=== PATIENT | female | born 1950 | race Two or more races ===

== ENCOUNTER → 2016-10-17 | Outpatient (CLI) | payer MEDICARE, OTHER | END | disposition home or self-care (01) | LOC: Rad HDHVI 13:25 | PROVIDERS: ATTEND Internal Medicine Cardiovascular Disease | DX: R01.1 Cardiac murmur, unspecified (principal) | CPT/HCPCS: 93880 ==

== ENCOUNTER → 2016-10-20 | Outpatient (CLI) | payer MEDICARE, OTHER ==
[2016-10-20 12:48] LABS: Basophils # (auto) 0 uL; Basophils % (auto) 0.7 % (0.0-2.0); CONDITION Y; Eosinophils # (auto) 0.3 uL; Eosinophils % (auto) 5.3 % (0.0-7.0); Hematocrit 44.6 % (36.0-46.0); Hemoglobin 14.9 g/dL (12.2-16.2); Lymphocytes # (auto) 0.9 uL; Lymphocytes % (auto) 18.2 % (10.0-50.0); Mean Corpuscular Hemoglobin 31.6 pg (28.0-32.0); Mean Corpuscular Hgb Conc. 33.4 g/dL (32.0-36.0); Mean Corpuscular Volume 94.7 fL (80.0-100.0); Monocytes # (auto) 0.4 uL; Neutrophils # (auto) 3.3 uL; Neutrophils % (auto) 67.8 % (37.0-80.0); Platelet Count (auto) 256 10^3/uL (140-450); Red Cell Distribution Width 14.1 % (11.6-16.0); White Blood Cell 4.9 10^3/uL (4.4-10.8)
[2016-10-20 12:54] LABS: Albumin 3.7 g/dL (3.4-5.0); Alkaline Phosphatase 64 U/L (45-117); Anion Gap 7 (5-15); Aspartate Aminotransferase 20 U/L (15-37); BUN/Creatinine Ratio 18.3; Bilirubin, Direct < 0.1 mg/dL (0-0.2); Bilirubin, Total 0.4 mg/dL (0.2-1.0); Blood Urea Nitrogen 22 mg/dL (7-18); Calcium 9.4 mg/dL (8.5-10.1); Carbon Dioxide 27 mmol/L (21-32); Chloride 106 mmol/L (98-107); Cholesterol 244 mg/dL (< 200); GFR African American 58 mL/min; GFR Non-African American 48 mL/min; Glucose 97 mg/dL (74-106); HDL Cholesterol 78 mg/dL (40-59); LDL Cholesterol 144 mg/dL (< 100); Potassium 4.3 mmol/L (3.5-5.1); Sodium 140 mmol/L (136-145); Total Protein 7.4 g/dL (6.4-8.2); Triglycerides 152 mg/dL (< 150)
== END | disposition home or self-care (01) ==
LOC: Rad HDHVI 09:16
PROVIDERS: ATTEND Internal Medicine Cardiovascular Disease
DX: E78.00 Pure hypercholesterolemia, unspecified (principal); D64.9 Anemia, unspecified; I10 Essential (primary) hypertension; E03.9 Hypothyroidism, unspecified; E55.9 Vitamin D deficiency, unspecified; K74.1 Hepatic sclerosis; E11.9 Type 2 diabetes mellitus without complications; K75.9 Inflammatory liver disease, unspecified; M85.9 Disorder of bone density and structure, unspecified
CPT/HCPCS: 36415; 77078; 80048; 80061; 80076; 82306; 83036; 84439; 84443; 85025; 86704; 86706; 86708; 86803; 87340

== ENCOUNTER → 2019-11-19 | Outpatient (CLI) | payer MEDICARE, BC ==
[2019-11-19 16:00] LABS: Urine Blood Negative /uL (Negative); Urine Specific Gravity 1.008 (1.001-1.035)
== END | disposition home or self-care (01) ==
LOC: LAB 13:04
PROVIDERS: ATTEND Internal Medicine Cardiovascular Disease
DX: N39.0 Urinary tract infection, site not specified (principal)
CPT/HCPCS: 81003; 87086

== ENCOUNTER → 2019-12-17 | Outpatient (CLI) | payer MEDICARE, BC | END | disposition home or self-care (01) | LOC: Rad HDHVI 13:18 | PROVIDERS: ATTEND Internal Medicine Cardiovascular Disease | DX: I08.3 Combined rheumatic disorders of mitral, aortic and tricuspid valves (principal); I10 Essential (primary) hypertension; R00.2 Palpitations; J44.9 Chronic obstructive pulmonary disease, unspecified | CPT/HCPCS: 93306 ==

== ENCOUNTER 2020-01-21 17:11 | Inpatient (IN) | payer MEDICARE, OTHER ==
[~2020-01-21] VITALS: Ht 152.4 cm; Wt 65.0 kg
[2020-01-21] MEDS ORDERED: ACETAMINOPHEN 325 MG TAB PO ONE ×2 (17:30)
[2020-01-21] MEDS ORDERED: SODIUM CHLORIDE 0.9% 1,000 ML IVB ONE (18:04)
[2020-01-21] MEDS ORDERED: ONDANSETRON HCL 4 MG/2 ML VIAL IV ONE ×2 (18:15→19:45)
[2020-01-21] MEDS ORDERED: MORPHINE SULF INJ 2 MG/ML SYRINGE 1ML IV ONE ×2 (18:30→19:45)
[2020-01-21 18:59] LABS: Urine Bacteria FEW /hpf (None Seen); Urine Blood Negative /uL (Negative); Urine Mucus FEW (None Seen); Urine Specific Gravity 1.017 (1.001-1.035); Urine WBC 3 /hpf (0 - 5)
[2020-01-21] MEDS ORDERED: metroNIDAZOLE 500MG/100ML 100 ML IV ONE (19:15)
[2020-01-21] MEDS ORDERED: PIPERACILLIN-TAZO 4.5GM 100 ML IV ONE (19:15)
[2020-01-21] MEDS ORDERED: SODIUM CHLORIDE 0.9% 1,000 ML IV ONE (19:15)
[2020-01-21] MEDS ORDERED: cefTRIAXone 1GM/50ML D5W 50 ML IV ONE ×2 (19:15→20:15)
[2020-01-21 19:53] LABS: Basophils # (auto) 0 10 ^3/uL (0-0.2); Eosinophils # (auto) 0 10 ^3/uL (0-0.8); Hematocrit 38.1 % (36.0-46.0); Hemoglobin 12.9 g/dL (12.2-16.2); Lymphocytes # (auto) 0.2 10 ^3/uL (0.4-5.4); Lymphocytes % (auto) 3.1 % (10.0-50.0); Mean Corpuscular Hemoglobin 32.1 pg (28.0-32.0); Mean Corpuscular Hgb Conc. 33.9 g/dL (32.0-36.0); Mean Corpuscular Volume 94.8 fL (80.0-100.0); Monocytes # (auto) 0.5 10 ^3/uL (0-1.3); Monocytes % (auto) 7.9 % (0.0-12.0); Neutrophils # (auto) 5.1 10 ^3/uL (1.6-8.6); Platelet Count (auto) 197 10^3/uL (140-450); Red Blood Cells 4.02 10^6/uL (4.0-5.20); Red Cell Distribution Width 13.1 % (11.8-14.3); White Blood Cell 5.7 10^3/uL (4.4-10.8)
[2020-01-21 20:08] LABS: INR 1.05 (0.9-1.15); Partial Thromboplastin Time 35.6 sec (23.0-31.2)
[2020-01-21 20:10] LABS: Albumin 2.5 g/dL (3.4-5.0); Calcium 8.2 mg/dL (8.5-10.1); Magnesium 1.8 mg/dL (1.6-2.6); Potassium 4.1 mmol/L (3.5-5.1)
[2020-01-21 20:16] LABS: BUN/Creatinine Ratio 18.4; Bilirubin, Total 1.5 mg/dL (0.2-1.0); Total Protein 6.2 g/dL (6.4-8.2)
[2020-01-21] MEDS: D5W/SOD CHLO 0.9% 1,000 ML IV SCH (21:15)
[2020-01-21] MEDS ORDERED: ONDANSETRON HCL 4 MG/2 ML VIAL IV PRN (21:15)
[2020-01-21] MEDS ORDERED: MORPHINE SULFATE 4 MG/ML SYR/VIAL IV PRN (21:15)
[2020-01-21] MEDS ORDERED: NITROGLYCERIN 0.4 MG SL TAB SL PRN (21:15)
[2020-01-21] MEDS ORDERED: MORPHINE SULF INJ 2 MG/ML SYRINGE 1ML IV PRN (21:15)
[2020-01-21] MEDS ORDERED: TPN PER PHARMACY 0 ML IV SCH (22:30)
[2020-01-21] MEDS ORDERED: LORazepam 2MG/ML-1ML VIAL IV PRN (22:30)
[2020-01-21] MEDS ORDERED: ALBUTEROL SULF 2.5 MG/0.5ML(0.5%) NEB SOLN ONE (22:55)
[2020-01-21] MEDS: ALBUTEROL SULF 2.5 MG/0.5ML(0.5%) NEB SOLN NEB PRN (23:08)
[2020-01-21] MEDS ORDERED: OLME40TA26 PO (23:18)
[2020-01-21] MEDS ORDERED: TRIA75TA55 PO (23:18)
[2020-01-21] MEDS ORDERED: ATEN1TAB38 PO ×2 (23:18)
[2020-01-21] MEDS ORDERED: AMLO5TAB15 PO (23:18)
[2020-01-21] MEDS: HYDROmorphone HCL 2 MG/ML VL IV PRN (23:55)
[2020-01-22] VITALS (9 sets, daily range): BP systolic 94–131; BP diastolic 55–75
[2020-01-22] MEDS ORDERED: ALBU108A5 INH (01:13)
[2020-01-22] MEDS ORDERED: POTA-220 PO (01:13)
[2020-01-22] MEDS ORDERED: MONT10TA34 PO (01:13)
[2020-01-22] MEDS ORDERED: POLY33504 PO (01:44)
[2020-01-22 05:50] LABS: Albumin 2.3 g/dL (3.4-5.0); Anion Gap 4 (5-15); Blood Urea Nitrogen 22 mg/dL (7-18); Calcium 7.9 mg/dL (8.5-10.1); Carbon Dioxide 25 mmol/L (21-32); Chloride 112 mmol/L (98-107); Glucose 158 mg/dL (74-106); Potassium 3.6 mmol/L (3.5-5.1); Sodium 141 mmol/L (136-145)
[2020-01-22 05:58] LABS: Alanine Aminotransferase 22 U/L (13-56); Alkaline Phosphatase 77 U/L (45-117); Aspartate Aminotransferase 20 U/L (15-37); BUN/Creatinine Ratio 18.5; Bilirubin, Total 0.9 mg/dL (0.2-1.0); GFR African American 58 mL/min; GFR Non-African American 48 mL/min; Total Protein 6.1 g/dL (6.4-8.2)
[2020-01-22] MEDS: HYDROmorphone HCL 2 MG/ML VL IV PRN ×3 (06:06→21:34)
[2020-01-22] MEDS: metroNIDAZOLE 500MG/100ML 100 ML IV SCH ×3 (06:07→21:24)
[2020-01-22 06:20] LABS: Basophils # (auto) 0 10 ^3/uL (0-0.2); Basophils % (auto) 0.1 % (0.0-2.0); Eosinophils # (auto) 0 10 ^3/uL (0-0.8); Eosinophils % (auto) 0.1 % (0.0-7.0); Hematocrit 37.2 % (36.0-46.0); Hemoglobin 12.7 g/dL (12.2-16.2); Lymphocytes # (auto) 0.4 10 ^3/uL (0.4-5.4); Lymphocytes % (auto) 4.9 % (10.0-50.0); Mean Corpuscular Hemoglobin 32.4 pg (28.0-32.0); Mean Corpuscular Hgb Conc. 34.2 g/dL (32.0-36.0); Mean Corpuscular Volume 94.9 fL (80.0-100.0); Monocytes # (auto) 0.4 10 ^3/uL (0-1.3); Monocytes % (auto) 5.3 % (0.0-12.0); Neutrophils # (auto) 6.8 10 ^3/uL (1.6-8.6); Neutrophils % (auto) 89.6 % (37.0-80.0); Platelet Count (auto) 173 10^3/uL (140-450); Red Blood Cells 3.92 10^6/uL (4.0-5.20); Red Cell Distribution Width 13.1 % (11.8-14.3); White Blood Cell 7.6 10^3/uL (4.4-10.8)
[2020-01-22 08:10] LABS: Phosphorus 3.6 mg/dL (2.5-4.90); Pre Albumin 10.6 mg/dL (20.0-40.0)
[2020-01-22] MEDS: cefTRIAXone 1GM/50ML D5W 50 ML IV SCH (09:22)
[2020-01-22] MEDS: D5W/SOD CHLO 0.9% 1,000 ML IV SCH ×2 (09:23→11:20)
[2020-01-22] MEDS: PANTOPRAZOLE 40 MG/10 ML VIAL INJ IV SCH (09:23)
[2020-01-22] MEDS ORDERED: LIDOCAINE 1% (LOCAL ANESTH.) PF 5ml SDV ID ONE (14:15)
[2020-01-22] MEDS: InsuLIN REG 1unit/0.01ml Soln (100units/ml) SC SCH (17:00)
[2020-01-22] MEDS: ACCU-CHEK COMFORT CURVE STRIP VI SCH (17:01)
[2020-01-22] MEDS ORDERED: DEXTROSE (50%) 50ML SYRG IV SCH (18:00)
[2020-01-22] MEDS ORDERED: PPN PER PHARMACY IV NR ×8 (20:00)
[2020-01-22] MEDS: SODIUM CHLOR 0.9% PF (SALINE LOCK) 10ML VIAL/SYR IV SCH (21:24)
[2020-01-23] MEDS: ACCU-CHEK COMFORT CURVE STRIP VI SCH ×4 (00:02→19:37)
[2020-01-23] MEDS: D5W/SOD CHLO 0.9% 1,000 ML IV SCH ×2 (03:10→20:17)
[2020-01-23 05:00] VITALS: BP 146/77
[2020-01-23 05:56] LABS: Basophils # (auto) 0 10 ^3/uL (0-0.2); Basophils % (auto) 0.3 % (0.0-2.0); Eosinophils # (auto) 0 10 ^3/uL (0-0.8); Eosinophils % (auto) 0.4 % (0.0-7.0); Hematocrit 38.5 % (36.0-46.0); Hemoglobin 13.2 g/dL (12.2-16.2); Lymphocytes # (auto) 0.4 10 ^3/uL (0.4-5.4); Lymphocytes % (auto) 4.2 % (10.0-50.0); Mean Corpuscular Hemoglobin 32.7 pg (28.0-32.0); Mean Corpuscular Hgb Conc. 34.2 g/dL (32.0-36.0); Mean Corpuscular Volume 95.5 fL (80.0-100.0); Monocytes # (auto) 0.5 10 ^3/uL (0-1.3); Monocytes % (auto) 5.7 % (0.0-12.0); Neutrophils # (auto) 8.3 10 ^3/uL (1.6-8.6); Neutrophils % (auto) 89.4 % (37.0-80.0); Nucleated Red Blood Cells % 0.1 %; Platelet Count (auto) 168 10^3/uL (140-450); Red Blood Cells 4.03 10^6/uL (4.0-5.20); Red Cell Distribution Width 13.5 % (11.8-14.3); White Blood Cell 9.3 10^3/uL (4.4-10.8)
[2020-01-23 06:21] LABS: Potassium 3.8 mmol/L (3.5-5.1)
[2020-01-23] MEDS: metroNIDAZOLE 500MG/100ML 100 ML IV SCH ×3 (06:27→22:13)
[2020-01-23] MEDS: InsuLIN REG 1unit/0.01ml Soln (100units/ml) SC SCH ×4 (06:27→18:00)
[2020-01-23 06:30] LABS: Albumin 2.2 g/dL (3.4-5.0); BUN/Creatinine Ratio 21.9; Bilirubin, Total 0.4 mg/dL (0.2-1.0); Calcium 8.6 mg/dL (8.5-10.1); Magnesium 2.3 mg/dL (1.6-2.6); Phosphorus 1.6 mg/dL (2.5-4.90); Total Protein 6.6 g/dL (6.4-8.2)
[2020-01-23] MEDS ORDERED: SODIUM PHOSP 40 MEQ in D5W 5% 250 ML IV ONE (08:45)
[2020-01-23] MEDS: ALBUTEROL SULF 2.5 MG/0.5ML(0.5%) NEB SOLN NEB PRN ×3 (08:56→20:21)
[2020-01-23] MEDS: PANTOPRAZOLE 40 MG/10 ML VIAL INJ IV SCH (08:56)
[2020-01-23] MEDS: cefTRIAXone 1GM/50ML D5W 50 ML IV SCH (08:56)
[2020-01-23] MEDS: HYDROmorphone HCL 2 MG/ML VL IV PRN ×2 (08:57→16:18)
[2020-01-23 09:00] VITALS: BP 146/96
[2020-01-23] MEDS ORDERED: LORazepam 2MG/ML-1ML VIAL IV PRN (10:30)
[2020-01-23] MEDS: SODIUM CHLOR 0.9% PF (SALINE LOCK) 10ML VIAL/SYR IV SCH ×2 (10:32→22:13)
[2020-01-23 13:00] VITALS: BP 121/67
[2020-01-23 17:00] VITALS: BP 144/68
[2020-01-23] MEDS: MORPHINE SULF INJ 2 MG/ML SYRINGE 1ML IV PRN ×2 (18:04→22:13)
[2020-01-23] MEDS ORDERED: PPN PER PHARMACY IV NR ×8 (20:00)
[2020-01-23 22:00] VITALS: BP 139/72
[2020-01-23] MEDS ORDERED: ACETAMINOPHEN 650 MG RECT SUPP PR PRN ×3 (22:00→22:15)
[2020-01-23] MEDS: ACETAMINOPHEN 650 MG RECT SUPP PR PRN (23:08)
[2020-01-24] MEDS: InsuLIN REG 1unit/0.01ml Soln (100units/ml) SC SCH ×5 (00:01→23:31)
[2020-01-24] MEDS: ACCU-CHEK COMFORT CURVE STRIP VI SCH ×5 (00:01→23:22)
[2020-01-24 05:00] VITALS: BP 140/78
[2020-01-24 05:24] LABS: Basophils # (auto) 0 10 ^3/uL (0-0.2); Basophils % (auto) 0.1 % (0.0-2.0); Eosinophils # (auto) 0.1 10 ^3/uL (0-0.8); Eosinophils % (auto) 1.3 % (0.0-7.0); Hematocrit 35.9 % (36.0-46.0); Hemoglobin 12.3 g/dL (12.2-16.2); Lymphocytes # (auto) 0.6 10 ^3/uL (0.4-5.4); Lymphocytes % (auto) 6.9 % (10.0-50.0); Mean Corpuscular Hemoglobin 32.9 pg (28.0-32.0); Mean Corpuscular Hgb Conc. 34.3 g/dL (32.0-36.0); Monocytes # (auto) 0.6 10 ^3/uL (0-1.3); Monocytes % (auto) 7.2 % (0.0-12.0); Neutrophils # (auto) 7.4 10 ^3/uL (1.6-8.6); Neutrophils % (auto) 84.5 % (37.0-80.0); Platelet Count (auto) 148 10^3/uL (140-450); Red Blood Cells 3.75 10^6/uL (4.0-5.20); Red Cell Distribution Width 14.1 % (11.8-14.3); White Blood Cell 8.7 10^3/uL (4.4-10.8)
[2020-01-24 05:41] LABS: Albumin 1.7 g/dL (3.4-5.0); Calcium 7.7 mg/dL (8.5-10.1); Potassium 3.5 mmol/L (3.5-5.1)
[2020-01-24 05:46] LABS: Bilirubin, Total 0.3 mg/dL (0.2-1.0); Phosphorus 2.6 mg/dL (2.5-4.90); Total Protein 5.5 g/dL (6.4-8.2)
[2020-01-24] MEDS: metroNIDAZOLE 500MG/100ML 100 ML IV SCH (06:14)
[2020-01-24 09:00] VITALS: BP 146/81
[2020-01-24] MEDS: ALBUTEROL SULF 2.5 MG/0.5ML(0.5%) NEB SOLN NEB PRN ×2 (09:00→17:40)
[2020-01-24] MEDS: cefTRIAXone 1GM/50ML D5W 50 ML IV SCH (09:29)
[2020-01-24] MEDS: SODIUM CHLOR 0.9% PF (SALINE LOCK) 10ML VIAL/SYR IV SCH ×2 (09:29→20:54)
[2020-01-24] MEDS: PANTOPRAZOLE 40 MG/10 ML VIAL INJ IV SCH (09:29)
[2020-01-24] MEDS ORDERED: PIPERACILLIN-TAZOB 3.375GM 100 ML IV ONE (10:00)
[2020-01-24] MEDS: D5W/SOD CHLO 0.9% 1,000 ML IV SCH (12:37)
[2020-01-24 13:00] VITALS: BP 147/84
[2020-01-24 17:00] VITALS: BP 147/87
[2020-01-24 17:40] VITALS: BP 127/72
[2020-01-24] MEDS: PIPERACILLIN-TAZOB 3.375GM 100 ML IV SCH (18:02)
[2020-01-24] MEDS: MORPHINE SULF INJ 2 MG/ML SYRINGE 1ML IV PRN (18:03)
[2020-01-24] MEDS ORDERED: TPN PER PHARMACY IV NR ×10 (20:00)
[2020-01-24] MEDS: ACETAMINOPHEN 650 MG RECT SUPP PR PRN ×2 (20:54→21:32)
[2020-01-24 21:44] VITALS: BP 127/72
[2020-01-25] MEDS: PIPERACILLIN-TAZOB 3.375GM 100 ML IV SCH ×3 (01:32→18:28)
[2020-01-25 05:03] LABS: Basophils # (auto) 0 10 ^3/uL (0-0.2); Basophils % (auto) 0.3 % (0.0-2.0); Eosinophils # (auto) 0.2 10 ^3/uL (0-0.8); Eosinophils % (auto) 2.3 % (0.0-7.0); Hematocrit 36.9 % (36.0-46.0); Hemoglobin 12.7 g/dL (12.2-16.2); Lymphocytes # (auto) 0.8 10 ^3/uL (0.4-5.4); Lymphocytes % (auto) 9.2 % (10.0-50.0); Mean Corpuscular Hemoglobin 32.2 pg (28.0-32.0); Mean Corpuscular Hgb Conc. 34.5 g/dL (32.0-36.0); Mean Corpuscular Volume 93.5 fL (80.0-100.0); Monocytes # (auto) 0.8 10 ^3/uL (0-1.3); Monocytes % (auto) 9.9 % (0.0-12.0); Neutrophils # (auto) 6.6 10 ^3/uL (1.6-8.6); Neutrophils % (auto) 78.3 % (37.0-80.0); Platelet Count (auto) 165 10^3/uL (140-450); Red Blood Cells 3.94 10^6/uL (4.0-5.20); Red Cell Distribution Width 13.8 % (11.8-14.3); White Blood Cell 8.5 10^3/uL (4.4-10.8)
[2020-01-25 05:26] LABS: Albumin 1.7 g/dL (3.4-5.0); Calcium 7.7 mg/dL (8.5-10.1); Potassium 3.4 mmol/L (3.5-5.1)
[2020-01-25 05:30] LABS: Bilirubin, Total 0.4 mg/dL (0.2-1.0); Total Protein 5.3 g/dL (6.4-8.2)
[2020-01-25] MEDS: D5W/SOD CHLO 0.9% 1,000 ML IV SCH (05:31)
[2020-01-25] MEDS: ACCU-CHEK COMFORT CURVE STRIP VI SCH ×4 (05:32→23:39)
[2020-01-25 05:34] VITALS: BP 148/67
[2020-01-25] MEDS: HYDROmorphone HCL 2 MG/ML VL IV PRN (05:37)
[2020-01-25] MEDS: InsuLIN REG 1unit/0.01ml Soln (100units/ml) SC SCH ×4 (05:44→23:32)
[2020-01-25 09:00] VITALS: BP 132/85
[2020-01-25] MEDS ORDERED: POTASSIUM CHL 20MEQ/100ML 100 ML IV ONE (09:45)
[2020-01-25] MEDS: SODIUM CHLOR 0.9% PF (SALINE LOCK) 10ML VIAL/SYR IV SCH ×2 (10:36→21:58)
[2020-01-25] MEDS: PANTOPRAZOLE 40 MG/10 ML VIAL INJ IV SCH (10:36)
[2020-01-25 13:00] VITALS: BP 138/73
[2020-01-25] MEDS: MORPHINE SULF INJ 2 MG/ML SYRINGE 1ML IV PRN ×3 (14:08→23:52)
[2020-01-25 14:42] VITALS: BP 150/80
[2020-01-25] MEDS: ALBUTEROL SULF 2.5 MG/0.5ML(0.5%) NEB SOLN NEB PRN (18:20)
[2020-01-25] MEDS ORDERED: TPN PER PHARMACY IV NR ×9 (20:00)
[2020-01-25] MEDS ORDERED: D5W/SOD CHLO 0.9% 1,000 ML IV SCH (20:00)
[2020-01-25 21:44] VITALS: BP 132/75
[2020-01-25] MEDS: ACETAMINOPHEN 650 MG RECT SUPP PR PRN (21:58)
[2020-01-25 22:33] VITALS: BP 142/74
[2020-01-26] MEDS: PIPERACILLIN-TAZOB 3.375GM 100 ML IV SCH ×3 (01:32→17:24)
[2020-01-26 05:22] LABS: Albumin 1.7 g/dL (3.4-5.0)
[2020-01-26 05:26] LABS: BUN/Creatinine Ratio 32.3; Bilirubin, Total 0.4 mg/dL (0.2-1.0); Phosphorus 3.3 mg/dL (2.5-4.90); Total Protein 5.5 g/dL (6.4-8.2)
[2020-01-26] MEDS: ACCU-CHEK COMFORT CURVE STRIP VI SCH ×3 (05:55→18:17)
[2020-01-26] MEDS: InsuLIN REG 1unit/0.01ml Soln (100units/ml) SC SCH ×3 (05:55→17:57)
[2020-01-26] MEDS ORDERED: OMNIPAQUE ORAL SOLN 500ml 12mg/ml PO ONE (07:08)
[2020-01-26] MEDS: PANTOPRAZOLE 40 MG/10 ML VIAL INJ IV SCH (08:19)
[2020-01-26] MEDS: SODIUM CHLOR 0.9% PF (SALINE LOCK) 10ML VIAL/SYR IV SCH ×2 (08:20→22:13)
[2020-01-26] MEDS: MORPHINE SULF INJ 2 MG/ML SYRINGE 1ML IV PRN ×2 (08:21→17:36)
[2020-01-26 08:36] VITALS: BP 152/81
[2020-01-26] MEDS ORDERED: fentaNYL CITRATE 100 MCG/2 ML VL IV ONE (12:15)
[2020-01-26] MEDS ORDERED: MIDAZOLAM HCL 1MG/1ML-2 ML VIAL IV ONE (12:15)
[2020-01-26] MEDS: ALBUTEROL SULF 2.5 MG/0.5ML(0.5%) NEB SOLN NEB PRN (12:39)
[2020-01-26] MEDS ORDERED: LIDOCAINE 2%HCL (LOCAL ANESTH.) INJ 20ML MDV ONE (12:41)
[2020-01-26] MEDS ORDERED: GASTROGRAFIN 30 ML SOL ONE (12:45)
[2020-01-26 13:00] VITALS: BP 129/73
[2020-01-26] MEDS ORDERED: GASTROGRAFIN 120 ML SOL ONE (13:21)
[2020-01-26 17:00] VITALS: BP 114/56
[2020-01-26] MEDS ORDERED: TPN PER PHARMACY IV NR ×11 (20:00)
[2020-01-26 21:34] VITALS: BP 125/74
[2020-01-26] MEDS: ACETAMINOPHEN 650 MG RECT SUPP PR PRN (22:14)
[2020-01-27] MEDS: InsuLIN REG 1unit/0.01ml Soln (100units/ml) SC SCH ×5 (00:43→23:39)
[2020-01-27] MEDS: ACCU-CHEK COMFORT CURVE STRIP VI SCH ×5 (00:43→23:28)
[2020-01-27] MEDS: PIPERACILLIN-TAZOB 3.375GM 100 ML IV SCH ×3 (02:50→17:31)
[2020-01-27 04:55] LABS: Basophils # (auto) 0 10 ^3/uL (0-0.2); Basophils % (auto) 0.2 % (0.0-2.0); Eosinophils # (auto) 0.2 10 ^3/uL (0-0.8); Eosinophils % (auto) 1.8 % (0.0-7.0); Hematocrit 37.3 % (36.0-46.0); Hemoglobin 12.7 g/dL (12.2-16.2); Lymphocytes # (auto) 0.8 10 ^3/uL (0.4-5.4); Mean Corpuscular Hemoglobin 31.8 pg (28.0-32.0); Mean Corpuscular Hgb Conc. 33.9 g/dL (32.0-36.0); Mean Corpuscular Volume 93.6 fL (80.0-100.0); Monocytes # (auto) 1.1 10 ^3/uL (0-1.3); Monocytes % (auto) 12.4 % (0.0-12.0); Neutrophils # (auto) 6.8 10 ^3/uL (1.6-8.6); Neutrophils % (auto) 76.6 % (37.0-80.0); Platelet Count (auto) 204 10^3/uL (140-450); Red Blood Cells 3.99 10^6/uL (4.0-5.20); Red Cell Distribution Width 13.6 % (11.8-14.3); White Blood Cell 8.9 10^3/uL (4.4-10.8)
[2020-01-27 05:00] VITALS: BP 136/76
[2020-01-27 05:12] LABS: Albumin 1.7 g/dL (3.4-5.0); Calcium 8.1 mg/dL (8.5-10.1); Magnesium 2.1 mg/dL (1.6-2.6); Potassium 4.1 mmol/L (3.5-5.1)
[2020-01-27 05:17] LABS: BUN/Creatinine Ratio 34.4; Bilirubin, Total 0.4 mg/dL (0.2-1.0); Phosphorus 3.7 mg/dL (2.5-4.90); Total Protein 5.6 g/dL (6.4-8.2)
[2020-01-27 09:00] VITALS: BP 144/67
[2020-01-27] MEDS: HYDROmorphone HCL 2 MG/ML VL IV PRN ×3 (09:10→22:07)
[2020-01-27] MEDS: SODIUM CHLOR 0.9% PF (SALINE LOCK) 10ML VIAL/SYR IV SCH ×2 (09:46→21:11)
[2020-01-27] MEDS: PANTOPRAZOLE 40 MG/10 ML VIAL INJ IV SCH (09:46)
[2020-01-27] MEDS ORDERED: ACETAMINOPHEN 650 MG RECT SUPP PR PRN (10:30)
[2020-01-27 12:28] VITALS: BP 119/64
[2020-01-27 16:59] VITALS: BP 134/83
[2020-01-27 18:10] VITALS: BP 134/83
[2020-01-27] MEDS ORDERED: TPN PER PHARMACY IV NR ×10 (20:00)
[2020-01-27] MEDS: ALBUTEROL SULF 2.5 MG/0.5ML(0.5%) NEB SOLN NEB PRN (20:33)
[2020-01-27 21:11] VITALS: BP 122/80
[2020-01-28] MEDS: diphenhdrAMINE HCL 50 MG/1 ML VL IV PRN (00:11)
[2020-01-28] MEDS: PIPERACILLIN-TAZOB 3.375GM 100 ML IV SCH ×3 (01:51→17:45)
[2020-01-28 05:00] VITALS: BP 133/65
[2020-01-28] MEDS: ACCU-CHEK COMFORT CURVE STRIP VI SCH ×4 (05:31→23:44)
[2020-01-28] MEDS: InsuLIN REG 1unit/0.01ml Soln (100units/ml) SC SCH ×4 (05:32→23:49)
[2020-01-28 06:09] LABS: Albumin 1.7 g/dL (3.4-5.0); Calcium 8.1 mg/dL (8.5-10.1); Magnesium 2.1 mg/dL (1.6-2.6)
[2020-01-28 06:15] LABS: BUN/Creatinine Ratio 34.3; Bilirubin, Total 0.6 mg/dL (0.2-1.0); Phosphorus 3.4 mg/dL (2.5-4.90); Total Protein 5.8 g/dL (6.4-8.2)
[2020-01-28 09:00] VITALS: BP 137/81
[2020-01-28] MEDS: PANTOPRAZOLE 40 MG/10 ML VIAL INJ IV SCH (09:48)
[2020-01-28] MEDS: SODIUM CHLOR 0.9% PF (SALINE LOCK) 10ML VIAL/SYR IV SCH ×2 (09:48→22:21)
[2020-01-28] MEDS ORDERED: ACETAMINOPHEN 500 MG TAB PO PRN (10:15)
[2020-01-28] MEDS: HYDROmorphone HCL 2 MG/ML VL IV PRN ×3 (10:32→20:42)
[2020-01-28 13:00] VITALS: BP 130/70
[2020-01-28] MEDS: metroNIDAZOLE 500MG/100ML 100 ML IV SCH ×2 (15:00→22:22)
[2020-01-28 16:36] VITALS: BP 129/69
[2020-01-28] MEDS: ALBUTEROL SULF 2.5 MG/0.5ML(0.5%) NEB SOLN NEB PRN (18:34)
[2020-01-28] MEDS ORDERED: TPN PER PHARMACY IV NR ×10 (20:00)
[2020-01-28 22:00] VITALS: BP 134/54
[2020-01-29] MEDS: PIPERACILLIN-TAZOB 3.375GM 100 ML IV SCH ×3 (01:56→17:48)
[2020-01-29 04:41] VITALS: BP 146/68
[2020-01-29] MEDS: metroNIDAZOLE 500MG/100ML 100 ML IV SCH ×3 (05:46→21:53)
[2020-01-29 05:52] LABS: Pre Albumin 15.9 mg/dL (20.0-40.0)
[2020-01-29 05:53] LABS: Potassium 3.9 mmol/L (3.5-5.1)
[2020-01-29 06:01] LABS: Albumin 1.7 g/dL (3.4-5.0); BUN/Creatinine Ratio 38.1; Bilirubin, Total 0.7 mg/dL (0.2-1.0); Calcium 8.3 mg/dL (8.5-10.1); Magnesium 2.1 mg/dL (1.6-2.6); Phosphorus 3.1 mg/dL (2.5-4.90); Total Protein 5.9 g/dL (6.4-8.2)
[2020-01-29] MEDS: ACCU-CHEK COMFORT CURVE STRIP VI SCH ×4 (06:09→23:41)
[2020-01-29] MEDS: InsuLIN REG 1unit/0.01ml Soln (100units/ml) SC SCH ×4 (06:14→23:42)
[2020-01-29] MEDS: HYDROmorphone HCL 2 MG/ML VL IV PRN ×3 (08:37→21:53)
[2020-01-29 09:00] VITALS: BP 143/81
[2020-01-29] MEDS: SODIUM CHLOR 0.9% PF (SALINE LOCK) 10ML VIAL/SYR IV SCH ×2 (10:12→21:56)
[2020-01-29] MEDS: PANTOPRAZOLE 40 MG/10 ML VIAL INJ IV SCH (10:12)
[2020-01-29 13:00] VITALS: BP 115/78
[2020-01-29 16:53] VITALS: BP 130/77
[2020-01-29] MEDS ORDERED: TPN PER PHARMACY IV NR ×10 (20:00)
[2020-01-29 21:57] VITALS: BP 134/70
[2020-01-29] MEDS: ALBUTEROL SULF 2.5 MG/0.5ML(0.5%) NEB SOLN NEB PRN (23:04)
[2020-01-30] MEDS: PIPERACILLIN-TAZOB 3.375GM 100 ML IV SCH ×2 (02:20→10:41)
[2020-01-30 04:53] VITALS: BP 121/65
[2020-01-30] MEDS: ACCU-CHEK COMFORT CURVE STRIP VI SCH ×4 (05:56→23:57)
[2020-01-30] MEDS: metroNIDAZOLE 500MG/100ML 100 ML IV SCH ×3 (05:56→22:12)
[2020-01-30 06:04] LABS: Albumin 1.7 g/dL (3.4-5.0); Calcium 8.3 mg/dL (8.5-10.1); Magnesium 2.1 mg/dL (1.6-2.6); Potassium 3.9 mmol/L (3.5-5.1)
[2020-01-30 06:07] LABS: BUN/Creatinine Ratio 32.9; Bilirubin, Total 0.6 mg/dL (0.2-1.0); Phosphorus 3.1 mg/dL (2.5-4.90)
[2020-01-30] MEDS: InsuLIN REG 1unit/0.01ml Soln (100units/ml) SC SCH ×4 (06:14→23:58)
[2020-01-30 09:00] VITALS: BP 131/70
[2020-01-30] MEDS: PANTOPRAZOLE 40 MG/10 ML VIAL INJ IV SCH (10:41)
[2020-01-30] MEDS: SODIUM CHLOR 0.9% PF (SALINE LOCK) 10ML VIAL/SYR IV SCH ×2 (10:41→22:13)
[2020-01-30 13:00] VITALS: BP 129/70
[2020-01-30 14:36] LABS: Basophils # (auto) 0 10 ^3/uL (0-0.2); Basophils % (auto) 0.3 % (0.0-2.0); Eosinophils # (auto) 0.2 10 ^3/uL (0-0.8); Eosinophils % (auto) 1.5 % (0.0-7.0); Hemoglobin 11.5 g/dL (12.2-16.2); Lymphocytes # (auto) 0.6 10 ^3/uL (0.4-5.4); Lymphocytes % (auto) 5.7 % (10.0-50.0); Mean Corpuscular Hemoglobin 31.6 pg (28.0-32.0); Mean Corpuscular Hgb Conc. 33.7 g/dL (32.0-36.0); Mean Corpuscular Volume 93.7 fL (80.0-100.0); Monocytes # (auto) 0.8 10 ^3/uL (0-1.3); Monocytes % (auto) 6.7 % (0.0-12.0); Neutrophils # (auto) 9.7 10 ^3/uL (1.6-8.6); Neutrophils % (auto) 85.8 % (37.0-80.0); Platelet Count (auto) 352 10^3/uL (140-450); Red Blood Cells 3.63 10^6/uL (4.0-5.20); Red Cell Distribution Width 13.6 % (11.8-14.3); White Blood Cell 11.3 10^3/uL (4.4-10.8)
[2020-01-30] MEDS: ALBUTEROL SULF 2.5 MG/0.5ML(0.5%) NEB SOLN NEB PRN (16:39)
[2020-01-30] MEDS: diphenhdrAMINE HCL 50 MG/1 ML VL IV PRN ×2 (16:43→23:59)
[2020-01-30 17:05] VITALS: BP 147/78
[2020-01-30] MEDS: MEROPENEM 1GM IVPB 100 ML IV SCH (18:31)
[2020-01-30] MEDS ORDERED: TPN PER PHARMACY IV NR ×10 (20:00)
[2020-01-30 22:00] VITALS: BP 135/76
[2020-01-31] VITALS (7 sets, daily range): BP systolic 120–135; BP diastolic 60–76
[2020-01-31] MEDS: MEROPENEM 1GM IVPB 100 ML IV SCH ×3 (01:51→18:39)
[2020-01-31] MEDS: HYDROmorphone HCL 2 MG/ML VL IV PRN (02:09)
[2020-01-31 05:40] LABS: Basophils # (auto) 0 10 ^3/uL (0-0.2); Basophils % (auto) 0.2 % (0.0-2.0); Eosinophils # (auto) 0.2 10 ^3/uL (0-0.8); Hematocrit 32.2 % (36.0-46.0); Hemoglobin 10.9 g/dL (12.2-16.2); Lymphocytes # (auto) 0.7 10 ^3/uL (0.4-5.4); Lymphocytes % (auto) 7.4 % (10.0-50.0); Mean Corpuscular Hemoglobin 31.8 pg (28.0-32.0); Mean Corpuscular Hgb Conc. 33.8 g/dL (32.0-36.0); Mean Corpuscular Volume 94.1 fL (80.0-100.0); Monocytes # (auto) 0.8 10 ^3/uL (0-1.3); Monocytes % (auto) 8.4 % (0.0-12.0); Neutrophils # (auto) 7.8 10 ^3/uL (1.6-8.6); Nucleated Red Blood Cells % 0.1 %; Platelet Count (auto) 384 10^3/uL (140-450); Red Blood Cells 3.42 10^6/uL (4.0-5.20); Red Cell Distribution Width 13.7 % (11.8-14.3); White Blood Cell 9.5 10^3/uL (4.4-10.8)
[2020-01-31 05:59] LABS: Albumin 1.7 g/dL (3.4-5.0); Calcium 8.2 mg/dL (8.5-10.1); Magnesium 2.2 mg/dL (1.6-2.6)
[2020-01-31 06:04] LABS: BUN/Creatinine Ratio 38.2; Bilirubin, Total 0.4 mg/dL (0.2-1.0); Phosphorus 3.2 mg/dL (2.5-4.90)
[2020-01-31] MEDS: ACCU-CHEK COMFORT CURVE STRIP VI SCH ×4 (06:05→23:56)
[2020-01-31] MEDS: InsuLIN REG 1unit/0.01ml Soln (100units/ml) SC SCH ×4 (06:06→23:57)
[2020-01-31] MEDS: metroNIDAZOLE 500MG/100ML 100 ML IV SCH ×3 (06:06→22:10)
[2020-01-31] MEDS: PANTOPRAZOLE 40 MG/10 ML VIAL INJ IV SCH (08:54)
[2020-01-31] MEDS: SODIUM CHLOR 0.9% PF (SALINE LOCK) 10ML VIAL/SYR IV SCH ×2 (08:54→22:09)
[2020-01-31] MEDS: ALBUTEROL SULF 2.5 MG/0.5ML(0.5%) NEB SOLN NEB PRN (10:33)
[2020-01-31] MEDS ORDERED: TPN PER PHARMACY IV NR ×9 (20:00)
[2020-01-31] MEDS: diphenhdrAMINE HCL 50 MG/1 ML VL IV PRN (23:56)
[2020-02-01] VITALS (7 sets, daily range): BP systolic 136–160; BP diastolic 59–84
[2020-02-01] MEDS: HYDROmorphone HCL 2 MG/ML VL IV PRN (00:49)
[2020-02-01] MEDS: MEROPENEM 1GM IVPB 100 ML IV SCH ×3 (02:37→18:53)
[2020-02-01 05:43] LABS: Basophils # (auto) 0 10 ^3/uL (0-0.2); Basophils % (auto) 0.3 % (0.0-2.0); Eosinophils # (auto) 0.3 10 ^3/uL (0-0.8); Eosinophils % (auto) 3.5 % (0.0-7.0); Hematocrit 32.9 % (36.0-46.0); Hemoglobin 11.1 g/dL (12.2-16.2); Lymphocytes # (auto) 0.8 10 ^3/uL (0.4-5.4); Lymphocytes % (auto) 9.1 % (10.0-50.0); Mean Corpuscular Hemoglobin 31.7 pg (28.0-32.0); Mean Corpuscular Hgb Conc. 33.8 g/dL (32.0-36.0); Mean Corpuscular Volume 93.6 fL (80.0-100.0); Monocytes # (auto) 0.9 10 ^3/uL (0-1.3); Monocytes % (auto) 9.5 % (0.0-12.0); Neutrophils # (auto) 7.2 10 ^3/uL (1.6-8.6); Neutrophils % (auto) 77.6 % (37.0-80.0); Platelet Count (auto) 463 10^3/uL (140-450); Red Blood Cells 3.52 10^6/uL (4.0-5.20); Red Cell Distribution Width 13.7 % (11.8-14.3); White Blood Cell 9.2 10^3/uL (4.4-10.8)
[2020-02-01] MEDS: metroNIDAZOLE 500MG/100ML 100 ML IV SCH ×3 (05:58→22:30)
[2020-02-01 06:00] LABS: Albumin 1.8 g/dL (3.4-5.0); Calcium 8.4 mg/dL (8.5-10.1); Magnesium 2.2 mg/dL (1.6-2.6)
[2020-02-01 06:04] LABS: BUN/Creatinine Ratio 38.5; Bilirubin, Total 0.4 mg/dL (0.2-1.0); Phosphorus 2.8 mg/dL (2.5-4.90)
[2020-02-01] MEDS: ACCU-CHEK COMFORT CURVE STRIP VI SCH ×4 (06:13→23:46)
[2020-02-01] MEDS: InsuLIN REG 1unit/0.01ml Soln (100units/ml) SC SCH ×4 (06:17→23:47)
[2020-02-01] MEDS: PANTOPRAZOLE 40 MG/10 ML VIAL INJ IV SCH (10:21)
[2020-02-01] MEDS: SODIUM CHLOR 0.9% PF (SALINE LOCK) 10ML VIAL/SYR IV SCH ×2 (10:21→22:00)
[2020-02-01] MEDS: diphenhdrAMINE HCL 50 MG/1 ML VL IV PRN ×2 (13:10→23:46)
[2020-02-01] MEDS: ALBUTEROL SULF 2.5 MG/0.5ML(0.5%) NEB SOLN NEB PRN (20:00)
[2020-02-01] MEDS ORDERED: TPN PER PHARMACY IV NR ×10 (20:00)
[2020-02-02] MEDS: HYDROmorphone HCL 2 MG/ML VL IV PRN (00:40)
[2020-02-02] MEDS: MEROPENEM 1GM IVPB 100 ML IV SCH ×2 (02:07→10:11)
[2020-02-02 05:00] VITALS: BP 123/71
[2020-02-02 05:37] LABS: Basophils # (auto) 0 10 ^3/uL (0-0.2); Basophils % (auto) 0.3 % (0.0-2.0); Eosinophils # (auto) 0.2 10 ^3/uL (0-0.8); Eosinophils % (auto) 2.7 % (0.0-7.0); Hematocrit 31.8 % (36.0-46.0); Hemoglobin 10.7 g/dL (12.2-16.2); Lymphocytes # (auto) 0.8 10 ^3/uL (0.4-5.4); Lymphocytes % (auto) 9.2 % (10.0-50.0); Mean Corpuscular Hemoglobin 32.2 pg (28.0-32.0); Mean Corpuscular Hgb Conc. 33.7 g/dL (32.0-36.0); Mean Corpuscular Volume 95.4 fL (80.0-100.0); Monocytes % (auto) 11.2 % (0.0-12.0); Neutrophils # (auto) 6.8 10 ^3/uL (1.6-8.6); Neutrophils % (auto) 76.6 % (37.0-80.0); Nucleated Red Blood Cells % 0.1 %; Platelet Count (auto) 448 10^3/uL (140-450); Red Blood Cells 3.34 10^6/uL (4.0-5.20); Red Cell Distribution Width 13.6 % (11.8-14.3); White Blood Cell 8.9 10^3/uL (4.4-10.8)
[2020-02-02 05:58] LABS: Albumin 1.7 g/dL (3.4-5.0); BUN/Creatinine Ratio 40.3; Bilirubin, Total 0.3 mg/dL (0.2-1.0); Calcium 8.1 mg/dL (8.5-10.1); Magnesium 2.1 mg/dL (1.6-2.6); Phosphorus 3.4 mg/dL (2.5-4.90); Total Protein 5.8 g/dL (6.4-8.2)
[2020-02-02] MEDS: InsuLIN REG 1unit/0.01ml Soln (100units/ml) SC SCH ×3 (06:00→17:50)
[2020-02-02] MEDS: metroNIDAZOLE 500MG/100ML 100 ML IV SCH ×3 (06:27→21:29)
[2020-02-02] MEDS: ACCU-CHEK COMFORT CURVE STRIP VI SCH ×3 (06:27→17:50)
[2020-02-02 09:00] VITALS: BP 129/60
[2020-02-02] MEDS: PANTOPRAZOLE 40 MG/10 ML VIAL INJ IV SCH (10:11)
[2020-02-02] MEDS: SODIUM CHLOR 0.9% PF (SALINE LOCK) 10ML VIAL/SYR IV SCH ×2 (10:11→21:29)
[2020-02-02] MEDS ORDERED: FUROSEMIDE 20 MG/2 ML VIAL IV ONE (10:45)
[2020-02-02] MEDS ORDERED: POTASSIUM EFFERVESENT TAB 25 MEQ PO ONE (10:45)
[2020-02-02 13:00] VITALS: BP 145/67
[2020-02-02 16:51] VITALS: BP 120/76
[2020-02-02 20:00] VITALS: BP 119/70
[2020-02-02] MEDS ORDERED: TPN PER PHARMACY IV NR ×10 (20:00)
[2020-02-02] MEDS: ALBUTEROL SULF 2.5 MG/0.5ML(0.5%) NEB SOLN NEB PRN (20:42)
[2020-02-02] MEDS: MONTELUKAST SODIUM 10 MG TAB PO SCH (21:29)
[2020-02-02 22:00] VITALS: BP 119/70
[2020-02-03] VITALS (7 sets, daily range): BP systolic 100–121; BP diastolic 55–77
[2020-02-03] MEDS: ACCU-CHEK COMFORT CURVE STRIP VI SCH ×4 (00:19→17:31)
[2020-02-03] MEDS: InsuLIN REG 1unit/0.01ml Soln (100units/ml) SC SCH ×4 (00:20→17:32)
[2020-02-03] MEDS: metroNIDAZOLE 500MG/100ML 100 ML IV SCH ×3 (05:32→21:14)
[2020-02-03 05:58] LABS: Albumin 1.8 g/dL (3.4-5.0); Calcium 8.3 mg/dL (8.5-10.1); Magnesium 2.2 mg/dL (1.6-2.6); Potassium 3.9 mmol/L (3.5-5.1)
[2020-02-03 06:03] LABS: BUN/Creatinine Ratio 34.2; Bilirubin, Total 0.3 mg/dL (0.2-1.0); Phosphorus 3.4 mg/dL (2.5-4.90); Total Protein 6.2 g/dL (6.4-8.2)
[2020-02-03] MEDS: MIDAZOLAM HCL 1MG/1ML-2 ML VIAL ONE ×2 (10:25→10:55)
[2020-02-03] MEDS: fentaNYL CITRATE 100 MCG/2 ML VL ONE ×2 (10:26→10:55)
[2020-02-03] MEDS: levoFLOXacin 500MG 100 ML IV SCH (10:35)
[2020-02-03] MEDS: PANTOPRAZOLE 40 MG/10 ML VIAL INJ IV SCH (10:35)
[2020-02-03] MEDS: SODIUM CHLOR 0.9% PF (SALINE LOCK) 10ML VIAL/SYR IV SCH ×2 (10:36→21:14)
[2020-02-03 10:52] LABS: INR 1.17 (0.9-1.15)
[2020-02-03] MEDS: ALBUTEROL SULF 2.5 MG/0.5ML(0.5%) NEB SOLN NEB PRN ×2 (12:01→20:04)
[2020-02-03] MEDS: HYDROmorphone HCL 2 MG/ML VL IV PRN (13:36)
[2020-02-03] MEDS ORDERED: POTASSIUM ACETATE IV NR ×10 (20:00)
[2020-02-03] MEDS ORDERED: FAT EMULSION IV NR ×10 (20:00)
[2020-02-03] MEDS ORDERED: [UNRECOGNIZED DRUG - OTHER] IV NR ×10 (20:00)
[2020-02-03] MEDS ORDERED: SODIUM ACETATE IV NR ×10 (20:00)
[2020-02-03] MEDS: diphenhdrAMINE HCL 50 MG/1 ML VL IV PRN (21:12)
[2020-02-03] MEDS: MONTELUKAST SODIUM 10 MG TAB PO SCH (21:13)
[2020-02-04] MEDS: ACCU-CHEK COMFORT CURVE STRIP VI SCH ×5 (00:08→23:46)
[2020-02-04] MEDS: InsuLIN REG 1unit/0.01ml Soln (100units/ml) SC SCH ×5 (00:09→23:47)
[2020-02-04 05:21] VITALS: BP 105/64
[2020-02-04] MEDS: metroNIDAZOLE 500MG/100ML 100 ML IV SCH ×3 (06:05→22:10)
[2020-02-04 06:25] LABS: Albumin 1.7 g/dL (3.4-5.0); Calcium 8.3 mg/dL (8.5-10.1); Magnesium 2.1 mg/dL (1.6-2.6); Potassium 4.3 mmol/L (3.5-5.1)
[2020-02-04 06:26] LABS: Basophils # (auto) 0 10 ^3/uL (0-0.2); Basophils % (auto) 0.4 % (0.0-2.0); Eosinophils # (auto) 0.2 10 ^3/uL (0-0.8); Eosinophils % (auto) 2.5 % (0.0-7.0); Hematocrit 32.9 % (36.0-46.0); Lymphocytes # (auto) 0.7 10 ^3/uL (0.4-5.4); Lymphocytes % (auto) 10.2 % (10.0-50.0); Mean Corpuscular Hemoglobin 31.7 pg (28.0-32.0); Mean Corpuscular Hgb Conc. 33.5 g/dL (32.0-36.0); Mean Corpuscular Volume 94.7 fL (80.0-100.0); Monocytes # (auto) 0.9 10 ^3/uL (0-1.3); Monocytes % (auto) 13.6 % (0.0-12.0); Neutrophils # (auto) 4.8 10 ^3/uL (1.6-8.6); Neutrophils % (auto) 73.3 % (37.0-80.0); Platelet Count (auto) 413 10^3/uL (140-450); Red Blood Cells 3.47 10^6/uL (4.0-5.20); Red Cell Distribution Width 14.2 % (11.8-14.3); White Blood Cell 6.6 10^3/uL (4.4-10.8)
[2020-02-04 06:28] LABS: BUN/Creatinine Ratio 45.6; Bilirubin, Total 0.4 mg/dL (0.2-1.0); Phosphorus 3.6 mg/dL (2.5-4.90); Total Protein 5.7 g/dL (6.4-8.2)
[2020-02-04 08:00] VITALS: BP 113/60
[2020-02-04 09:00] VITALS: BP 113/60
[2020-02-04] MEDS: levoFLOXacin 500MG 100 ML IV SCH (09:32)
[2020-02-04] MEDS: PANTOPRAZOLE 40 MG/10 ML VIAL INJ IV SCH (09:32)
[2020-02-04] MEDS: SODIUM CHLOR 0.9% PF (SALINE LOCK) 10ML VIAL/SYR IV SCH ×2 (09:32→22:11)
[2020-02-04] MEDS ORDERED: NYSTATIN (MOUTH-THROAT) 500,000 UNITS/5 ML SUSP MT ONE (10:30)
[2020-02-04] MEDS: NYSTATIN (MOUTH-THROAT) 500,000 UNITS/5 ML SUSP MT SCH ×4 (12:00→22:10)
[2020-02-04 13:00] VITALS: BP 147/69
[2020-02-04 17:00] VITALS: BP 135/75
[2020-02-04] MEDS: ALBUTEROL SULF 2.5 MG/0.5ML(0.5%) NEB SOLN NEB PRN (19:05)
[2020-02-04] MEDS ORDERED: TPN PER PHARMACY IV NR ×10 (20:00)
[2020-02-04 21:52] VITALS: BP 120/72
[2020-02-04] MEDS: MONTELUKAST SODIUM 10 MG TAB PO SCH (22:11)
[2020-02-05] VITALS (7 sets, daily range): BP systolic 112–128; BP diastolic 58–80
[2020-02-05] MEDS: ACCU-CHEK COMFORT CURVE STRIP VI SCH ×3 (05:29→17:43)
[2020-02-05] MEDS: metroNIDAZOLE 500MG/100ML 100 ML IV SCH ×3 (05:29→22:30)
[2020-02-05] MEDS: NYSTATIN (MOUTH-THROAT) 500,000 UNITS/5 ML SUSP MT SCH ×4 (05:44→22:13)
[2020-02-05] MEDS: InsuLIN REG 1unit/0.01ml Soln (100units/ml) SC SCH ×3 (05:45→17:43)
[2020-02-05 06:08] LABS: Calcium 8.4 mg/dL (8.5-10.1); Potassium 3.9 mmol/L (3.5-5.1)
[2020-02-05 06:13] LABS: Albumin 1.8 g/dL (3.4-5.0); BUN/Creatinine Ratio 44.1; Bilirubin, Total 0.3 mg/dL (0.2-1.0); Phosphorus 3.1 mg/dL (2.5-4.90)
[2020-02-05] MEDS: PANTOPRAZOLE 40 MG/10 ML VIAL INJ IV SCH (09:31)
[2020-02-05] MEDS: SODIUM CHLOR 0.9% PF (SALINE LOCK) 10ML VIAL/SYR IV SCH ×2 (09:32→22:13)
[2020-02-05] MEDS ORDERED: levoFLOXacin 250MG 50 ML IV SCH (10:00)
[2020-02-05] MEDS ORDERED: CEFEPIME 2 GM in SODIUM CHL 0.9% 50 ML IV ONE (14:30)
[2020-02-05] MEDS: ALBUTEROL SULF 2.5 MG/0.5ML(0.5%) NEB SOLN NEB PRN (19:40)
[2020-02-05] MEDS ORDERED: TPN PER PHARMACY IV NR ×20 (20:00)
[2020-02-05] MEDS ORDERED: TPN*HIGH CONC* PER PHARMACY IV NR ×10 (20:00)
[2020-02-05] MEDS: CEFEPIME 2 GM in SODIUM CHL 0.9% 50 ML IV SCH (20:19)
[2020-02-05] MEDS: MONTELUKAST SODIUM 10 MG TAB PO SCH (22:12)
[2020-02-06] MEDS: ACCU-CHEK COMFORT CURVE STRIP VI SCH ×5 (00:01→23:38)
[2020-02-06] MEDS: InsuLIN REG 1unit/0.01ml Soln (100units/ml) SC SCH ×4 (00:08→18:01)
[2020-02-06 05:35] VITALS: BP 120/54
[2020-02-06] MEDS: NYSTATIN (MOUTH-THROAT) 500,000 UNITS/5 ML SUSP MT SCH ×4 (06:09→21:48)
[2020-02-06] MEDS: metroNIDAZOLE 500MG/100ML 100 ML IV SCH ×3 (06:09→23:38)
[2020-02-06 06:12] LABS: Potassium 3.8 mmol/L (3.5-5.1)
[2020-02-06 06:20] LABS: Albumin 1.9 g/dL (3.4-5.0); BUN/Creatinine Ratio 47.3; Bilirubin, Total 0.3 mg/dL (0.2-1.0); Calcium 8.5 mg/dL (8.5-10.1); Magnesium 2.2 mg/dL (1.6-2.6); Phosphorus 3.5 mg/dL (2.5-4.90); Total Protein 6.1 g/dL (6.4-8.2)
[2020-02-06 08:00] VITALS: BP 128/74
[2020-02-06] MEDS: CEFEPIME 2 GM in SODIUM CHL 0.9% 50 ML IV SCH ×2 (08:34→19:25)
[2020-02-06] MEDS: PANTOPRAZOLE 40 MG/10 ML VIAL INJ IV SCH (08:35)
[2020-02-06] MEDS: SODIUM CHLOR 0.9% PF (SALINE LOCK) 10ML VIAL/SYR IV SCH ×2 (08:38→21:47)
[2020-02-06 11:59] VITALS: BP 124/71
[2020-02-06 13:00] VITALS: BP 133/74
[2020-02-06 17:00] VITALS: BP 120/77
[2020-02-06] MEDS: ALBUTEROL SULF 2.5 MG/0.5ML(0.5%) NEB SOLN NEB PRN (18:47)
[2020-02-06] MEDS ORDERED: TPN PER PHARMACY IV NR ×10 (20:00)
[2020-02-06] MEDS: MONTELUKAST SODIUM 10 MG TAB PO SCH (21:48)
[2020-02-06 22:00] VITALS: BP 130/73
[2020-02-07 05:31] VITALS: BP 118/65
[2020-02-07 05:42] LABS: Albumin 1.9 g/dL (3.4-5.0); Calcium 8.5 mg/dL (8.5-10.1); Magnesium 2.1 mg/dL (1.6-2.6); Potassium 3.9 mmol/L (3.5-5.1)
[2020-02-07 05:48] LABS: BUN/Creatinine Ratio 45.9; Bilirubin, Total 0.2 mg/dL (0.2-1.0); Phosphorus 3.5 mg/dL (2.5-4.90); Pre Albumin 26.5 mg/dL (20.0-40.0); Total Protein 6.1 g/dL (6.4-8.2)
[2020-02-07] MEDS: InsuLIN REG 1unit/0.01ml Soln (100units/ml) SC SCH ×5 (06:00→23:48)
[2020-02-07] MEDS: metroNIDAZOLE 500MG/100ML 100 ML IV SCH ×3 (06:07→23:33)
[2020-02-07] MEDS: NYSTATIN (MOUTH-THROAT) 500,000 UNITS/5 ML SUSP MT SCH ×4 (06:07→21:05)
[2020-02-07] MEDS: ACCU-CHEK COMFORT CURVE STRIP VI SCH ×4 (06:08→23:33)
[2020-02-07] MEDS: CEFEPIME 2 GM in SODIUM CHL 0.9% 50 ML IV SCH ×2 (08:41→20:37)
[2020-02-07 08:54] VITALS: BP 117/72
[2020-02-07] MEDS: SODIUM CHLOR 0.9% PF (SALINE LOCK) 10ML VIAL/SYR IV SCH ×2 (10:17→21:05)
[2020-02-07] MEDS: PANTOPRAZOLE 40 MG/10 ML VIAL INJ IV SCH (10:17)
[2020-02-07 13:00] VITALS: BP 128/56
[2020-02-07 17:15] VITALS: BP 130/74
[2020-02-07] MEDS ORDERED: TPN PER PHARMACY IV NR ×9 (20:00)
[2020-02-07] MEDS: MONTELUKAST SODIUM 10 MG TAB PO SCH (21:05)
[2020-02-07 22:00] VITALS: BP 120/73
[2020-02-08 05:00] VITALS: BP 129/72
[2020-02-08] MEDS: metroNIDAZOLE 500MG/100ML 100 ML IV SCH ×3 (05:51→22:18)
[2020-02-08] MEDS: ACCU-CHEK COMFORT CURVE STRIP VI SCH ×3 (05:52→17:34)
[2020-02-08] MEDS: NYSTATIN (MOUTH-THROAT) 500,000 UNITS/5 ML SUSP MT SCH ×4 (05:52→22:18)
[2020-02-08] MEDS: InsuLIN REG 1unit/0.01ml Soln (100units/ml) SC SCH ×3 (05:54→17:33)
[2020-02-08 06:03] LABS: Potassium 3.7 mmol/L (3.5-5.1)
[2020-02-08 06:10] LABS: Albumin 1.8 g/dL (3.4-5.0); Bilirubin, Total 0.3 mg/dL (0.2-1.0); Calcium 8.5 mg/dL (8.5-10.1); Magnesium 2.2 mg/dL (1.6-2.6); Phosphorus 3.4 mg/dL (2.5-4.90); Total Protein 6.1 g/dL (6.4-8.2)
[2020-02-08] MEDS: CEFEPIME 2 GM in SODIUM CHL 0.9% 50 ML IV SCH ×2 (08:26→20:36)
[2020-02-08 09:00] VITALS: BP 119/68
[2020-02-08] MEDS: SODIUM CHLORIDE 0.9% 1,000 ML IV SCH (09:48)
[2020-02-08] MEDS: PANTOPRAZOLE 40 MG/10 ML VIAL INJ IV SCH (09:48)
[2020-02-08] MEDS: SODIUM CHLOR 0.9% PF (SALINE LOCK) 10ML VIAL/SYR IV SCH ×2 (09:48→22:18)
[2020-02-08 13:00] VITALS: BP 137/84
[2020-02-08 16:53] VITALS: BP 125/72
[2020-02-08] MEDS ORDERED: TPN PER PHARMACY IV NR ×10 (20:00)
[2020-02-08 22:00] VITALS: BP 128/77
[2020-02-08] MEDS: MONTELUKAST SODIUM 10 MG TAB PO SCH (22:19)
[2020-02-09] MEDS: ACCU-CHEK COMFORT CURVE STRIP VI SCH ×4 (00:11→17:35)
[2020-02-09] MEDS: SODIUM CHLORIDE 0.9% 1,000 ML IV SCH ×2 (02:10→17:35)
[2020-02-09 05:14] VITALS: BP 118/69
[2020-02-09] MEDS: InsuLIN REG 1unit/0.01ml Soln (100units/ml) SC SCH ×4 (06:00→17:35)
[2020-02-09] MEDS: NYSTATIN (MOUTH-THROAT) 500,000 UNITS/5 ML SUSP MT SCH ×4 (06:44→22:13)
[2020-02-09] MEDS: metroNIDAZOLE 500MG/100ML 100 ML IV SCH ×3 (06:44→22:13)
[2020-02-09 08:41] LABS: Albumin 1.9 g/dL (3.4-5.0); Calcium 8.4 mg/dL (8.5-10.1); Potassium 3.9 mmol/L (3.5-5.1)
[2020-02-09 08:45] LABS: BUN/Creatinine Ratio 42.9; Bilirubin, Total 0.3 mg/dL (0.2-1.0); Phosphorus 3.5 mg/dL (2.5-4.90)
[2020-02-09 08:54] VITALS: BP 108/67
[2020-02-09] MEDS: CEFEPIME 2 GM in SODIUM CHL 0.9% 50 ML IV SCH ×2 (09:14→20:23)
[2020-02-09] MEDS: PANTOPRAZOLE 40 MG/10 ML VIAL INJ IV SCH (09:14)
[2020-02-09] MEDS: SODIUM CHLOR 0.9% PF (SALINE LOCK) 10ML VIAL/SYR IV SCH ×2 (09:15→22:09)
[2020-02-09] MEDS ORDERED: IOHEXOL 300 MG/ML 100ML BOTTLE IJ ONE ×2 (10:07→11:36)
[2020-02-09 13:00] VITALS: BP 117/72
[2020-02-09 13:12] VITALS: BP 109/61
[2020-02-09 16:29] VITALS: BP 102/70
[2020-02-09] MEDS ORDERED: TPN PER PHARMACY IV NR ×9 (20:00)
[2020-02-09 22:00] VITALS: BP 131/79
[2020-02-09] MEDS: MONTELUKAST SODIUM 10 MG TAB PO SCH (22:13)
[2020-02-10 05:00] VITALS: BP 117/71
[2020-02-10] MEDS: NYSTATIN (MOUTH-THROAT) 500,000 UNITS/5 ML SUSP MT SCH ×4 (05:33→22:00)
[2020-02-10] MEDS: metroNIDAZOLE 500MG/100ML 100 ML IV SCH ×3 (05:33→22:00)
[2020-02-10] MEDS: ACCU-CHEK COMFORT CURVE STRIP VI SCH ×5 (05:33→23:36)
[2020-02-10] MEDS: InsuLIN REG 1unit/0.01ml Soln (100units/ml) SC SCH ×5 (05:41→23:36)
[2020-02-10 06:44] LABS: Potassium 3.8 mmol/L (3.5-5.1)
[2020-02-10 06:45] LABS: Basophils # (auto) 0 10 ^3/uL (0-0.2); Basophils % (auto) 0.7 % (0.0-2.0); Eosinophils # (auto) 0.2 10 ^3/uL (0-0.8); Eosinophils % (auto) 3.7 % (0.0-7.0); Hematocrit 34.1 % (36.0-46.0); Hemoglobin 11.4 g/dL (12.2-16.2); Lymphocytes # (auto) 0.9 10 ^3/uL (0.4-5.4); Lymphocytes % (auto) 13.8 % (10.0-50.0); Mean Corpuscular Hemoglobin 32.2 pg (28.0-32.0); Mean Corpuscular Hgb Conc. 33.5 g/dL (32.0-36.0); Monocytes # (auto) 0.9 10 ^3/uL (0-1.3); Monocytes % (auto) 14.3 % (0.0-12.0); Neutrophils # (auto) 4.2 10 ^3/uL (1.6-8.6); Neutrophils % (auto) 67.5 % (37.0-80.0); Nucleated Red Blood Cells % 0.1 %; Platelet Count (auto) 289 10^3/uL (140-450); Red Blood Cells 3.55 10^6/uL (4.0-5.20); Red Cell Distribution Width 14.2 % (11.8-14.3); White Blood Cell 6.3 10^3/uL (4.4-10.8)
[2020-02-10 06:54] LABS: Albumin 1.9 g/dL (3.4-5.0); BUN/Creatinine Ratio 43.3; Bilirubin, Total 0.2 mg/dL (0.2-1.0); Calcium 8.4 mg/dL (8.5-10.1); Magnesium 2.1 mg/dL (1.6-2.6); Phosphorus 3.6 mg/dL (2.5-4.90)
[2020-02-10 08:43] VITALS: BP 130/71
[2020-02-10] MEDS: CEFEPIME 2 GM in SODIUM CHL 0.9% 50 ML IV SCH ×2 (08:55→19:58)
[2020-02-10] MEDS: PANTOPRAZOLE 40 MG/10 ML VIAL INJ IV SCH (10:44)
[2020-02-10] MEDS: SODIUM CHLORIDE 0.9% 1,000 ML IV SCH (10:44)
[2020-02-10] MEDS: SODIUM CHLOR 0.9% PF (SALINE LOCK) 10ML VIAL/SYR IV SCH ×2 (10:44→22:00)
[2020-02-10 12:46] VITALS: BP 133/62
[2020-02-10 16:32] VITALS: BP 113/64
[2020-02-10 18:00] VITALS: BP 127/74
[2020-02-10] MEDS: MONTELUKAST SODIUM 10 MG TAB PO SCH (22:01)
[2020-02-10 22:13] VITALS: BP 127/74
[2020-02-11] MEDS: SODIUM CHLORIDE 0.9% 1,000 ML IV SCH (04:10)
[2020-02-11 04:51] VITALS: BP 149/79
[2020-02-11] MEDS: InsuLIN REG 1unit/0.01ml Soln (100units/ml) SC SCH (05:29)
[2020-02-11] MEDS: ACCU-CHEK COMFORT CURVE STRIP VI SCH (05:29)
[2020-02-11 05:30] VITALS: BP 128/70
[2020-02-11] MEDS: NYSTATIN (MOUTH-THROAT) 500,000 UNITS/5 ML SUSP MT SCH ×4 (05:35→21:44)
[2020-02-11] MEDS: metroNIDAZOLE 500MG/100ML 100 ML IV SCH (05:35)
[2020-02-11 05:36] LABS: Basophils # (auto) 0.1 10 ^3/uL (0-0.2); Basophils % (auto) 0.8 % (0.0-2.0); Eosinophils # (auto) 0.3 10 ^3/uL (0-0.8); Eosinophils % (auto) 4.5 % (0.0-7.0); Hematocrit 34.1 % (36.0-46.0); Hemoglobin 11.4 g/dL (12.2-16.2); Lymphocytes % (auto) 15.4 % (10.0-50.0); Mean Corpuscular Hemoglobin 32.1 pg (28.0-32.0); Mean Corpuscular Hgb Conc. 33.5 g/dL (32.0-36.0); Mean Corpuscular Volume 95.9 fL (80.0-100.0); Monocytes # (auto) 0.9 10 ^3/uL (0-1.3); Monocytes % (auto) 14.2 % (0.0-12.0); Neutrophils # (auto) 4.1 10 ^3/uL (1.6-8.6); Neutrophils % (auto) 65.1 % (37.0-80.0); Platelet Count (auto) 267 10^3/uL (140-450); Red Blood Cells 3.55 10^6/uL (4.0-5.20); Red Cell Distribution Width 14.3 % (11.8-14.3); White Blood Cell 6.3 10^3/uL (4.4-10.8)
[2020-02-11] MEDS: CEFEPIME 2 GM in SODIUM CHL 0.9% 50 ML IV SCH ×2 (08:25→19:42)
[2020-02-11 09:00] VITALS: BP 133/71
[2020-02-11] MEDS: SODIUM CHLOR 0.9% PF (SALINE LOCK) 10ML VIAL/SYR IV SCH ×2 (11:51→21:44)
[2020-02-11 13:00] VITALS: BP 139/88
[2020-02-11] MEDS: metroNIDAZOLE 500 MG TAB PO SCH ×2 (14:36→21:44)
[2020-02-11 17:00] VITALS: BP 137/78
[2020-02-11] MEDS: MONTELUKAST SODIUM 10 MG TAB PO SCH (21:44)
[2020-02-11 22:00] VITALS: BP 122/73
[2020-02-12 05:00] VITALS: BP 115/55
[2020-02-12] MEDS: metroNIDAZOLE 500 MG TAB PO SCH ×3 (05:44→21:25)
[2020-02-12] MEDS: NYSTATIN (MOUTH-THROAT) 500,000 UNITS/5 ML SUSP MT SCH ×4 (05:44→21:25)
[2020-02-12] MEDS: CEFEPIME 2 GM in SODIUM CHL 0.9% 50 ML IV SCH (08:25)
[2020-02-12 08:42] VITALS: BP 133/69
[2020-02-12 09:30] VITALS: BP 133/69
[2020-02-12] MEDS: SODIUM CHLOR 0.9% PF (SALINE LOCK) 10ML VIAL/SYR IV SCH ×2 (10:32→21:26)
[2020-02-12] MEDS: FLORASTOR (S. BOULARDII) 250 MG CAP PO SCH (10:33)
[2020-02-12] MEDS: PANTOPRAZOLE 40 MG TAB PO SCH (10:33)
[2020-02-12 12:53] VITALS: BP 111/70
[2020-02-12 16:30] VITALS: BP 130/85
[2020-02-12] MEDS: MONTELUKAST SODIUM 10 MG TAB PO SCH (21:25)
[2020-02-12 22:00] VITALS: BP 135/93
[2020-02-12] MEDS: ALBUTEROL SULF 2.5 MG/0.5ML(0.5%) NEB SOLN NEB PRN (23:36)
[2020-02-13 04:55] VITALS: BP 118/69
[2020-02-13] MEDS: NYSTATIN (MOUTH-THROAT) 500,000 UNITS/5 ML SUSP MT SCH ×3 (05:56→17:52)
[2020-02-13] MEDS: metroNIDAZOLE 500 MG TAB PO SCH ×2 (05:56→16:14)
[2020-02-13 09:00] VITALS: BP 131/76
[2020-02-13] MEDS ORDERED: MET500T PO (09:59)
[2020-02-13] MEDS ORDERED: LEVO-28 PO (09:59)
[2020-02-13] MEDS ORDERED: levoFLOXacin 500 MG TAB PO SCH (10:00)
[2020-02-13] MEDS: FLORASTOR (S. BOULARDII) 250 MG CAP PO SCH (10:32)
[2020-02-13] MEDS: PANTOPRAZOLE 40 MG TAB PO SCH (10:34)
[2020-02-13] MEDS: SODIUM CHLOR 0.9% PF (SALINE LOCK) 10ML VIAL/SYR IV SCH (11:40)
[2020-02-13 12:29] VITALS: BP 131/76
[2020-02-13 12:39] VITALS: BP 125/80
[2020-02-13 16:31] VITALS: BP 129/78
== END 2020-02-13 19:55 | disposition home health service (06) | DRG 871 ==
LOC: EDBD 17:11 → ER 17:11 → TELE 17:12 → TELE-CENTR 23:49 → CENTRAL 02-12 11:57
PROVIDERS: ADMIT Nurse Practitioner; ATTEND Internal Medicine
PROC: 02HV33Z Insertion of Infusion Device into Superior Vena Cava, Percutaneous Approach (ICD-10-PCS; principal; 2020-01-22)
PROC: 0W9F3ZZ Drainage of Abdominal Wall, Percutaneous Approach (ICD-10-PCS; 2020-01-26)
PROC: 0W9F3ZZ Drainage of Abdominal Wall, Percutaneous Approach (ICD-10-PCS; 2020-02-03)
DX: A41.52 Sepsis due to Pseudomonas (principal); E43 Unspecified severe protein-calorie malnutrition; N17.0 Acute kidney failure with tubular necrosis; K57.20 Diverticulitis of large intestine with perforation and abscess without bleeding; B96.1 Klebsiella pneumoniae [K. pneumoniae] as the cause of diseases classified elsewhere; Z68.28 Body mass index [BMI] 28.0-28.9, adult; E78.5 Hyperlipidemia, unspecified; F03.90 Unspecified dementia, unspecified severity, without behavioral disturbance, psychotic disturbance, mood disturbance, and anxiety; G89.29 Other chronic pain; H91.90 Unspecified hearing loss, unspecified ear; I11.9 Hypertensive heart disease without heart failure; J45.909 Unspecified asthma, uncomplicated
CPT/HCPCS: 10022; 36415; 36569; 51702; 71045; 72170; 72192; 74176; 74177; 76000; 77012; 80053; 81001; 82040; 82150; 82962; 83036; 83605; 83690; 83735; 83880; 84100; 84443; 84478; 84484; 85025; 85610; 85730; 87040; 87076; 87077; 87081; 87086; 87186; 87205; 93005; 94640; 96365; 96372; 96375; 96376; 97110; 97116; 97163; 97530; 99291; C1729; C9113; G0378; J0696; J1815; J1956; J2185; J2250; J2405; J2543; J3480; J3490; J7042; J7060; J7131

== ENCOUNTER 2020-02-19 18:50 | Inpatient (IN) | payer MEDICARE, BC ==
[~2020-02-19] VITALS: Ht 152.4 cm; Wt 55.2 kg
[~2020-02-19 18:50] MED LIST: ALBU108A5 INH; AMLO5TAB15 PO; ATEN1TAB38 PO; LEVO-28 PO; MET500T PO; MONT10TA34 PO; OLME40TA26 PO; POLY33504 PO
[2020-02-19] MEDS ORDERED: APIXABAN 5 MG TAB PO STA (20:01)
[2020-02-19] MEDS ORDERED: ENOXAPARIN SOD 100 MG/1 ML SYRINGE SC ONE (20:15)
[2020-02-19 21:14] LABS: Basophils # (auto) 0 10 ^3/uL (0-0.2); Basophils % (auto) 0.3 % (0.0-2.0); Eosinophils # (auto) 0.1 10 ^3/uL (0-0.8); Eosinophils % (auto) 1.3 % (0.0-7.0); Hematocrit 38.1 % (36.0-46.0); Hemoglobin 12.8 g/dL (12.2-16.2); Lymphocytes # (auto) 0.8 10 ^3/uL (0.4-5.4); Lymphocytes % (auto) 10.2 % (10.0-50.0); Mean Corpuscular Hgb Conc. 33.6 g/dL (32.0-36.0); Mean Corpuscular Volume 95.3 fL (80.0-100.0); Monocytes % (auto) 11.7 % (0.0-12.0); Neutrophils # (auto) 6.3 10 ^3/uL (1.6-8.6); Neutrophils % (auto) 76.5 % (37.0-80.0); Nucleated Red Blood Cells % 0.1 %; Platelet Count (auto) 167 10^3/uL (140-450); Red Cell Distribution Width 14.8 % (11.8-14.3); White Blood Cell 8.2 10^3/uL (4.4-10.8)
[2020-02-19 21:30] LABS: INR 1.11 (0.9-1.15); Partial Thromboplastin Time 32.1 sec (23.0-31.2)
[2020-02-19 21:34] LABS: Albumin 2.7 g/dL (3.4-5.0); Calcium 9.4 mg/dL (8.5-10.1); Potassium 3.8 mmol/L (3.5-5.1)
[2020-02-19 21:37] LABS: Bilirubin, Total 0.6 mg/dL (0.2-1.0); Total Protein 7.4 g/dL (6.4-8.2)
[2020-02-19] MEDS ORDERED: ALBUTEROL SULF HFA 90MCG INH 200DOSE IN PRN (21:45)
[2020-02-19] MEDS ORDERED: ONDANSETRON HCL 4 MG/2 ML VIAL IV PRN (21:45)
[2020-02-19] MEDS ORDERED: ACETAMINOPHEN 325 MG TAB PO PRN (21:45)
[2020-02-19] MEDS ORDERED: NITROGLYCERIN 0.4 MG SL TAB SL PRN (21:45)
[2020-02-19] MEDS ORDERED: MORPHINE SULFATE 4 MG/ML SYR/VIAL IV PRN (21:45)
[2020-02-19] MEDS ORDERED: DOCUSATE SOD 100 MG CAP PO PRN (21:45)
[2020-02-19] MEDS ORDERED: HYDROcodone-ACET 5/325MG TAB PO PRN (21:45)
[2020-02-19] MEDS ORDERED: MORPHINE SULF INJ 2 MG/ML SYRINGE 1ML IV PRN (21:45)
[2020-02-19] MEDS ORDERED: ALBUTEROL SULF 2.5 MG/0.5ML(0.5%) NEB SOLN NEB PRN (22:00)
[2020-02-19] MEDS: MONTELUKAST SODIUM 10 MG TAB PO SCH (22:10)
[2020-02-19] MEDS: SODIUM CHLOR 0.9% PF (SALINE LOCK) 10ML VIAL/SYR IV SCH (22:10)
[2020-02-19] MEDS: ALBUTEROL SULF 2.5 MG/0.5ML(0.5%) NEB SOLN NEB PRN (22:12)
[2020-02-19] MEDS: IPRATROPIUM BROM 0.5 MG/2.5ML INH SOL NEB PRN (22:12)
--- NOTE | 2020-02-19 23:14 | NUR ---
[facility] Patient alert and oriented x4to ADRIEL PIZARRO, RN primary RN, 209, and unit policies regarding patient care and visiting hours. Bed in low locked position, call light within reach, non skid socks on. Fall precaution observed. Patient weighed by bedscale and encouraged to call if they need something. All questions and concerns addressed, patient verbalized understanding. Note:
[2020-02-19 23:24] VITALS: BP 120/60
[2020-02-20] MEDS ORDERED: PNEUMOCOCCAL VACC POLYS 25 MCG/0.5 ML VIAL IM ONE (03:15)
--- NOTE | 2020-02-20 05:05 | NUR ---
Patient asleep, denies any needs, no sob and distress seen. will continue to educate and monitor patient.
[2020-02-20 05:32] VITALS: BP 115/60
[2020-02-20] MEDS: SODIUM CHLOR 0.9% PF (SALINE LOCK) 10ML VIAL/SYR IV SCH ×2 (06:13→22:00)
[2020-02-20 06:31] LABS: Basophils # (auto) 0 10 ^3/uL (0-0.2); Basophils % (auto) 0.4 % (0.0-2.0); Eosinophils # (auto) 0.1 10 ^3/uL (0-0.8); Eosinophils % (auto) 1.7 % (0.0-7.0); Hematocrit 33.5 % (36.0-46.0); Hemoglobin 11.3 g/dL (12.2-16.2); Lymphocytes # (auto) 0.7 10 ^3/uL (0.4-5.4); Mean Corpuscular Hgb Conc. 33.7 g/dL (32.0-36.0); Mean Corpuscular Volume 94.7 fL (80.0-100.0); Monocytes # (auto) 0.8 10 ^3/uL (0-1.3); Monocytes % (auto) 10.8 % (0.0-12.0); Neutrophils # (auto) 5.4 10 ^3/uL (1.6-8.6); Neutrophils % (auto) 77.1 % (37.0-80.0); Platelet Count (auto) 151 10^3/uL (140-450); Red Blood Cells 3.53 10^6/uL (4.0-5.20); Red Cell Distribution Width 14.7 % (11.8-14.3)
[2020-02-20 06:45] LABS: Potassium 3.8 mmol/L (3.5-5.1)
[2020-02-20 06:59] LABS: Albumin 2.3 g/dL (3.4-5.0); Bilirubin, Total 0.5 mg/dL (0.2-1.0); Calcium 8.7 mg/dL (8.5-10.1); Total Protein 5.9 g/dL (6.4-8.2)
--- NOTE | 2020-02-20 07:25 | NUR ---
Opening Shift Note Assumed care of patient, awake and alert. No S/S of distress/SOB or pain. Instructed on POC and to call for assist PRN, will continue to monitor for changes Q1hr and PRN.
[2020-02-20 09:00] VITALS: BP 108/62
[2020-02-20] MEDS ORDERED: ENOXAPARIN SOD 40 MG/0.4 ML SYRINGE SC SCH (10:00)
[2020-02-20] MEDS: IPRATROPIUM BROM 0.5 MG/2.5ML INH SOL NEB PRN ×2 (10:59→21:41)
[2020-02-20] MEDS: ALBUTEROL SULF 2.5 MG/0.5ML(0.5%) NEB SOLN NEB PRN ×2 (10:59→21:41)
--- NOTE | 2020-02-20 10:59 | NUR ---
Respiratory note: PT SEEN AND ASSESSED AT THIS TIME. PT C/O SOB. ADMINISTERED PRN MEDNEB TX. HR 102, RR 20, SPO2 92% ON ROOM AIR. BREATH SOUNDS DIMINISHED T/O. PT TOLERATED TX, NO ADVERSE REACTIONS. NO S/S OF DISTRESS. ADVISED PT TO CALL FOR RT AGAIN IF NEEDED.
[2020-02-20 13:00] VITALS: BP 110/58
[2020-02-20] MEDS ORDERED: ENOXAPARIN SOD 80 MG/0.8ML SYRINGE SC ONE (13:00)
[2020-02-20] MEDS: metroNIDAZOLE 500MG/100ML 100 ML IV SCH ×2 (14:00→23:01)
--- NOTE | 2020-02-20 16:22 | NUR ---
ss consult Per consult requesting information on advanced directive. Patient has been provided with advanced directive. Addendum: 02/20/20 at 1623 by Olena Jones Amended: Links added.
[2020-02-20 17:00] VITALS: BP 116/61
--- NOTE | 2020-02-20 17:10 | NUR ---
RECEIVED PATIENT FROM [facility]. TELE BOX CHANGED TO #15 AND OLD ONE SENT BACK WITH EARLY CHILDHOOD ASSOCIATE TEACHER. PATIENT IS AWAKE, ALERT, AND ORIENTED X4. PATIENT HAS NO S/S OF DISTRESS/SOB OR PAIN AT THIS TIME. BED IS IN LOWEST POSITION WITH SIDE RAILS RAISED X2, BED WHEELS LOCKED AND CALL LIGHT IS WITHIN REACH. WILL CONTINUE TO MONITOR.
--- NOTE | 2020-02-20 17:20 | NUR ---
PATIENT INCONTINENT OF URINE. PARTIAL LINEN CHANGE DONE.
[2020-02-20 17:23] LABS: Urine Bacteria FEW /hpf (None Seen); Urine Blood Negative /uL (Negative); Urine Mucus FEW (None Seen); Urine Specific Gravity 1.011 (1.001-1.035); Urine WBC 25 /hpf (0 - 5)
--- NOTE | 2020-02-20 19:06 | NUR ---
CLOSING SHIFT NOTE PATIENT HAS NO S/S OF DISTRESS/SOB OR PAIN AT THIS TIME. WILL ENDORSE CARE TO [employer] SALES REPRESENTATIVE RN.
--- NOTE | 2020-02-20 19:22 | NUR ---
Opening note Assumed care of patient, patient is alert and orientated x4. POC reviewed. Bed is locked in lowest position, side rails up x2. No sob or distress noted at this time. Call light within reach, Will continue to monitor q1hr and PRN.
--- NOTE | 2020-02-20 20:01 | NUR ---
Family called Family called after password verified, gave an update. Then they asked call to be transferred to room. Went in and made sure patient answered call. Will continue to monitor.
[2020-02-20 22:00] VITALS: BP 131/60
[2020-02-20] MEDS: ENOXAPARIN SOD 80 MG/0.8ML SYRINGE SC SCH (23:01)
[2020-02-20] MEDS: MONTELUKAST SODIUM 10 MG TAB PO SCH (23:01)
[2020-02-21 04:57] VITALS: BP 118/62
[2020-02-21] MEDS: SODIUM CHLOR 0.9% PF (SALINE LOCK) 10ML VIAL/SYR IV SCH ×3 (05:42→21:57)
[2020-02-21] MEDS: metroNIDAZOLE 500MG/100ML 100 ML IV SCH (05:52)
--- NOTE | 2020-02-21 07:35 | NUR ---
Closing note Endorsed care to day shift RN. no sob or distress noted.
[2020-02-21 08:00] VITALS: BP 123/64
[2020-02-21 08:55] LABS: Basophils # (auto) 0 10 ^3/uL (0-0.2); Basophils % (auto) 0.5 % (0.0-2.0); Eosinophils # (auto) 0.1 10 ^3/uL (0-0.8); Hematocrit 33.1 % (36.0-46.0); Hemoglobin 11.2 g/dL (12.2-16.2); Lymphocytes % (auto) 12.7 % (10.0-50.0); Mean Corpuscular Hgb Conc. 33.9 g/dL (32.0-36.0); Mean Corpuscular Volume 94.6 fL (80.0-100.0); Monocytes # (auto) 0.9 10 ^3/uL (0-1.3); Monocytes % (auto) 11.5 % (0.0-12.0); Neutrophils # (auto) 5.6 10 ^3/uL (1.6-8.6); Neutrophils % (auto) 74.3 % (37.0-80.0); Nucleated Red Blood Cells % 0.1 %; Platelet Count (auto) 161 10^3/uL (140-450); Red Cell Distribution Width 14.9 % (11.8-14.3); White Blood Cell 7.5 10^3/uL (4.4-10.8)
[2020-02-21 09:12] LABS: BUN/Creatinine Ratio 16.1; Calcium 8.4 mg/dL (8.5-10.1); Magnesium 2.1 mg/dL (1.6-2.6); Potassium 3.9 mmol/L (3.5-5.1)
[2020-02-21] MEDS ORDERED: levoFLOXacin 750MG 150 ML IV SCH (10:00)
--- NOTE | 2020-02-21 10:20 | NUR ---
Care endorsed to Shawnee MANCILLA
[2020-02-21] MEDS ORDERED: IOHEXOL 350 MG/ML 100ML IJ ONE (11:04)
[2020-02-21] MEDS: ENOXAPARIN SOD 80 MG/0.8ML SYRINGE SC SCH ×2 (11:49→21:58)
[2020-02-21] MEDS ORDERED: VANCOMYCIN PER PHARMACY 0 MG IV SCH (12:30)
[2020-02-21 13:00] VITALS: BP 123/66
[2020-02-21] MEDS ORDERED: VANCOMYCIN 1GM/250ML 250 ML IV ONE (13:15)
[2020-02-21] MEDS ORDERED: MORPHINE SULF INJ 2 MG/ML SYRINGE 1ML IV PRN (13:15)
[2020-02-21] MEDS: MEROPENEM 1GM IVPB 100 ML IV SCH ×2 (15:27→22:00)
[2020-02-21 17:00] VITALS: BP 134/71
--- NOTE | 2020-02-21 18:42 | NUR ---
PT ASSESSED FOR PRN MED NEB TX. SPO2 98% ON 2L NC, HR 95. PT DENIES ANY RESPIRATORY DISTRESS. NO TX INDICATED. PT IS AWARE TO HAVE RT PAGED IF TX NEEDED.
--- NOTE | 2020-02-21 19:45 | NUR ---
Opening Shift Note Assumed care of patient, awake and alert. A&Ox4. No S/S of distress/SOB or pain. Safety measures maintained by keeping the bed locked in lowest position, 2 side rails up, personal items and call light within reach. Daughter at bedside, and was updated on patient's condition. Instructed on POC and to call for assist PRN, will continue to monitor for changes Q1hr and PRN.
[2020-02-21] MEDS: ALBUTEROL SULF 2.5 MG/0.5ML(0.5%) NEB SOLN NEB PRN (19:56)
[2020-02-21] MEDS: IPRATROPIUM BROM 0.5 MG/2.5ML INH SOL NEB PRN (19:56)
--- NOTE | 2020-02-21 20:15 | NUR ---
Spoke to MD Cortes Patient's daughter requesting to speak to MD about patient's CT scan. Verbally read CT scan to MD. New MD orders include, incentive spirometer Q1H, up to chair with PT, and Echo tomorrow morning.
[2020-02-21] MEDS: MONTELUKAST SODIUM 10 MG TAB PO SCH (21:58)
[2020-02-21 22:00] VITALS: BP 114/63
[2020-02-22] MEDS: IPRATROPIUM BROM 0.5 MG/2.5ML INH SOL NEB PRN ×2 (02:20→19:56)
[2020-02-22] MEDS: ALBUTEROL SULF 2.5 MG/0.5ML(0.5%) NEB SOLN NEB PRN ×2 (02:20→19:56)
[2020-02-22 05:16] VITALS: BP 123/69
[2020-02-22] MEDS: SODIUM CHLOR 0.9% PF (SALINE LOCK) 10ML VIAL/SYR IV SCH ×3 (05:29→22:40)
[2020-02-22] MEDS: MEROPENEM 1GM IVPB 100 ML IV SCH ×3 (05:29→22:40)
[2020-02-22 09:00] VITALS: BP 117/61
--- NOTE | 2020-02-22 09:09 | NUR ---
Respiratory note: RESPIRATORY RATE 18; SPO2 95%; HEART RATE 74; BREATH SOUNDS CLEAR. PT ASLEEP AT THIS TIME. NO RESPIRATORY DISTRESS NOTED.
[2020-02-22] MEDS: ENOXAPARIN SOD 80 MG/0.8ML SYRINGE SC SCH ×2 (10:13→22:40)
[2020-02-22] MEDS: VANCOMYCIN 1GM/250ML 250 ML IV SCH (10:59)
[2020-02-22 13:00] VITALS: BP 108/65
[2020-02-22 17:00] VITALS: BP 111/61
--- NOTE | 2020-02-22 19:30 | NUR ---
Opening Shift Note Assumed care of patient, awake and alert. A&Ox4. Patient laying in bed, daughter at bedside. No S/S of distress/SOB or pain. Safety measures maintained by keeping the bed locked in lowest position, 2 side rails up, personal items and call light within reach. Fall precautions in place. Instructed on POC and to call for assist PRN, will continue to monitor for changes Q1hr and PRN.
[2020-02-22 21:17] VITALS: BP 111/61
[2020-02-22 22:00] VITALS: BP 114/63
[2020-02-22] MEDS: MONTELUKAST SODIUM 10 MG TAB PO SCH (22:41)
[2020-02-23 04:41] VITALS: BP 122/70
[2020-02-23] MEDS: VANCOMYCIN 1GM/250ML 250 ML IV SCH ×2 (04:55→23:00)
[2020-02-23 05:55] LABS: Basophils # (auto) 0 10 ^3/uL (0-0.2); Basophils % (auto) 0.3 % (0.0-2.0); Eosinophils # (auto) 0.1 10 ^3/uL (0-0.8); Hematocrit 30.5 % (36.0-46.0); Hemoglobin 10.4 g/dL (12.2-16.2); Lymphocytes # (auto) 0.9 10 ^3/uL (0.4-5.4); Lymphocytes % (auto) 13.5 % (10.0-50.0); Mean Corpuscular Hemoglobin 32.1 pg (28.0-32.0); Mean Corpuscular Hgb Conc. 34.1 g/dL (32.0-36.0); Mean Corpuscular Volume 94.2 fL (80.0-100.0); Monocytes # (auto) 0.8 10 ^3/uL (0-1.3); Monocytes % (auto) 12.1 % (0.0-12.0); Neutrophils # (auto) 4.7 10 ^3/uL (1.6-8.6); Neutrophils % (auto) 72.1 % (37.0-80.0); Platelet Count (auto) 169 10^3/uL (140-450); Red Blood Cells 3.24 10^6/uL (4.0-5.20); Red Cell Distribution Width 14.3 % (11.8-14.3); White Blood Cell 6.5 10^3/uL (4.4-10.8)
[2020-02-23] MEDS: MEROPENEM 1GM IVPB 100 ML IV SCH ×3 (06:12→21:11)
[2020-02-23] MEDS: SODIUM CHLOR 0.9% PF (SALINE LOCK) 10ML VIAL/SYR IV SCH ×3 (06:13→21:17)
[2020-02-23 06:35] LABS: Potassium 3.3 mmol/L (3.5-5.1)
[2020-02-23 06:50] LABS: BUN/Creatinine Ratio 20.5; Calcium 8.2 mg/dL (8.5-10.1)
--- NOTE | 2020-02-23 07:30 | NUR ---
Opening Shift Note Assumed care of patient, awake and alert. Respirations are even and unlabored. No S/S of distress/SOB or pain. Bed is low, locked with 2x side rails up. Call light is within reach. Instructed on POC and to call for assist PRN, will continue to monitor for changes Q1hr and PRN.
[2020-02-23 08:30] VITALS: BP 114/57
--- NOTE | 2020-02-23 08:37 | NUR ---
Respiratory note: PT SPO2 94% ON 3L. BREATH SOUNDS ARE CLEAR T/O. RESPIRATORY RATE 18. HEART RATE 96. NO RESPIRATORY DISTRESS NOTED AT THIS TIME.
[2020-02-23] MEDS ORDERED: POTASSIUM CHL 20 Meq TABLET PO ONE (09:45)
--- NOTE | 2020-02-23 10:30 | NUR ---
PT DECLINED P.T. TODAY.
--- NOTE | 2020-02-23 10:32 | NUR ---
Lovenox Ordered Lovenox is not available in medication pyxis. Called pharmacy and spoke with Roxanne in regards to getting this medication sent to [facility]. Per Roxanne, Lovenox is out of stock at this time. Lovenox shipment should arrive between 1030-11am. Roxanne to send up medication once it arrives. Will follow up.
[2020-02-23] MEDS: ENOXAPARIN SOD 80 MG/0.8ML SYRINGE SC SCH ×2 (11:45→21:12)
[2020-02-23] MEDS ORDERED: FLUCONAZOLE 100 MG TAB PO ONE (12:15)
--- NOTE | 2020-02-23 12:20 | NUR ---
Nutrition Assessment Notes Please refer to link for full assessment notes. Est Energy needs: 6221-0054 kcals (20-23 kcal/kgBW) Est Protein needs: 61-67 gms/day (1.0-1.1 gm/kgBW) Will continue to monitor and reassess prn. Addendum: 02/23/20 at [address] Amended: Links added.
[2020-02-23 12:30] VITALS: BP 127/72
[2020-02-23] MEDS ORDERED: PANTOPRAZOLE 40 MG TAB PO ONE (12:45)
[2020-02-23] MEDS: ALBUTEROL SULF 2.5 MG/0.5ML(0.5%) NEB SOLN NEB PRN ×2 (12:52→22:27)
[2020-02-23] MEDS: IPRATROPIUM BROM 0.5 MG/2.5ML INH SOL NEB PRN ×2 (12:53→22:27)
--- NOTE | 2020-02-23 12:53 | NUR ---
Respiratory note: PAGED FOR PRN TX. ASSESSED PT FOR RESPIRATORY DISTRESS. SPO2 96% ON 3L O2. HEART RATE 107. RESPIRATORY RATE 16. BREATH SOUNDS CLEAR T/O. PT STATES SHE FEELS SOB BECAUSE OF HER ASTHMA. TX GIVEN AT THIS TIME WITH NO ADVERSE REACTIONS AND TOLERATED WELL. PT INFORMED TO HAVE RT PAGED IF NEEDED. WILL CONTINUE TO ASSESS REGULARLY FOR PRN TX.
--- NOTE | 2020-02-23 13:42 | NUR ---
assessment Patient is a 69 year old female who is alert and oriented. Patients cognitive abilities are intact. Prior to admission patient lived home with her daughter Melanie and functioned with her assistance. Patient was just discharged from the hospital and is now re-admitted for DVT and PE with fevers. Per patient she will return home with her daughter Melanie post discharge and her daughter Ayse will transport her home. Patient informed me her PCP is Dr Bullard. Patient has a fww for home use. Patient is on service with [employer]. Patient will need a resumption order on discharge. I will continue to monitor and follow up as appropriate for any post discharge needs. I informed patient she has a right to speak to a marriage and family social worker regarding all care. I informed patient she has a right to participate in any and all discharge planning. Patient does not have a POA and advanced directive. I have offered patient information on POA and advanced directives. I informed the patient the advantages and benefits of having an Advanced Directive. Patient verbalized understanding and agreed to discharge plan. Addendum: 02/23/20 at 1346 by Olena DANG Amended: Links added.
[2020-02-23 16:59] VITALS: BP 114/71
--- NOTE | 2020-02-23 19:38 | NUR ---
Respiratory note: ASSESSMENT FOR PRN MED NEB TX, HR 103, SPO2 95% ON 3L NC, RR 19, BS DIMINISHED/COARSE. MED NEB TX NOT INDICATED AT THIS TIME, PT IN NO RESPIRATORY DISTRESS. PT MADE AWARE TO HAVE RT PAGED IF NEEDED, WILL CONTINUE TO MONITOR.
[2020-02-23] MEDS: PANTOPRAZOLE 40 MG TAB PO SCH (21:11)
[2020-02-23] MEDS: MONTELUKAST SODIUM 10 MG TAB PO SCH (21:12)
[2020-02-23 22:00] VITALS: BP 115/67
[2020-02-24 05:00] VITALS: BP 117/62
[2020-02-24 06:04] LABS: Basophils # (auto) 0 10 ^3/uL (0-0.2); Basophils % (auto) 0.6 % (0.0-2.0); Eosinophils # (auto) 0.2 10 ^3/uL (0-0.8); Hematocrit 30.5 % (36.0-46.0); Hemoglobin 10.1 g/dL (12.2-16.2); Lymphocytes % (auto) 17.7 % (10.0-50.0); Mean Corpuscular Hemoglobin 31.4 pg (28.0-32.0); Mean Corpuscular Volume 95.2 fL (80.0-100.0); Monocytes # (auto) 0.7 10 ^3/uL (0-1.3); Monocytes % (auto) 13.6 % (0.0-12.0); Neutrophils # (auto) 3.5 10 ^3/uL (1.6-8.6); Neutrophils % (auto) 64.1 % (37.0-80.0); Platelet Count (auto) 193 10^3/uL (140-450); Red Cell Distribution Width 14.3 % (11.8-14.3); White Blood Cell 5.5 10^3/uL (4.4-10.8)
[2020-02-24 06:18] LABS: Calcium 8.5 mg/dL (8.5-10.1); Potassium 3.8 mmol/L (3.5-5.1)
[2020-02-24 06:21] LABS: BUN/Creatinine Ratio 15.7
[2020-02-24 09:00] VITALS: BP 115/65
--- NOTE | 2020-02-24 09:15 | NUR ---
Patient refusing Physical therapy Patient refusing Physical therapy at this time regardless of education imparted regarding importance of physical activity.
[2020-02-24] MEDS ORDERED: POLYETHYLENE GLYCOL 17 GM PWDR PO ONE (11:00)
--- NOTE | 2020-02-24 11:00 | NUR ---
WOUND CARE NOTE: ADDED PATIENT TO SKIN INTEGRITY MONITORING D/T LOW JACKELIN SCORE OF 12, GIVEN OVERNIGHT BY BEDSIDE NURSE. PATIENT ADMITTED TO [facility] WITH DIAGNOSIS OF ACUTE EMBOLISM/THROMBOSIS RLE. CURRENT JACKELIN SCORE NOW IS 15. PATIENT UP IN CHAIR, ABLE TO SELF TURN/REPOSITION SELF. SHE IS WOUND FREE AT THIS TIME. SKIN/WOUND CARE PLAN IMPLEMENTED FOR JACKELIN SCORE UNDER 19. NO WOUND CARE MONITORING IS NEEDED AT THIS TIME.
[2020-02-24] MEDS: ENOXAPARIN SOD 80 MG/0.8ML SYRINGE SC SCH ×2 (11:05→23:01)
[2020-02-24] MEDS: PANTOPRAZOLE 40 MG TAB PO SCH ×2 (11:05→23:01)
[2020-02-24] MEDS: FLUCONAZOLE 100 MG TAB PO SCH (11:05)
--- NOTE | 2020-02-24 11:10 | NUR ---
IV PULLED OUT Patient states her IV line got tangled up with her call light and in attempts to detangle it she accidentally pulled it out. Bleeding noted down left arm. No active bleeding noted when patient arrived to room. Catheter noted to be fully intact, arm was cleansed and pressure dressing applied to site. Patient tolerated well. Patient refusing new IV placement at this time.
[2020-02-24 12:14] VITALS: BP 102/68
--- NOTE | 2020-02-24 13:15 | NUR ---
Patient ambulated to restroom w/ PT. Patient weak. Daughter at bedside insisting mom ambulates to restroom, daughter informed patient had refused PT twice today. PT paged at this time. Patient ambulated to toilet with assistance of walker and belt. Patient did very poorly and continued to lean back multiple times. Patient could not sit straight while sitting on toilet and kept leaning back. Patient placed back in bed with assistance of PT. Per Physical therapy patient is not able to ambulate on her own or with staff assistance, patient is too weak.
[2020-02-24] MEDS: MEROPENEM 1GM IVPB 100 ML IV SCH ×3 (14:00→23:00)
[2020-02-24] MEDS: SODIUM CHLOR 0.9% PF (SALINE LOCK) 10ML VIAL/SYR IV SCH ×2 (14:00→23:00)
--- NOTE | 2020-02-24 14:23 | NUR ---
ASSESSED PT FOR PRN MED NEB OR ON 3L NC WITH SPO2 98%, NO DISTRESS NOTED NO SOB NOTED. WILL CONTINUE TO MONITOR PT.
--- NOTE | 2020-02-24 16:30 | NUR ---
IV insertion IV access obtained, via clean sterile technique by inserting 22 gauge catheter at right forearm after 1 attempt. IV secured properly. No trauma to site. Patient tolerated well.
--- NOTE | 2020-02-24 16:38 | NUR ---
Late antibiotic Scheduled 1400 antibiotic given at this time after IV access obtained. Check EMAR for more information.
[2020-02-24 16:51] VITALS: BP 110/63
[2020-02-24] MEDS: VANCOMYCIN 1GM/250ML 250 ML IV SCH (18:00)
[2020-02-24] MEDS: IPRATROPIUM BROM 0.5 MG/2.5ML INH SOL NEB PRN ×2 (18:24→22:30)
[2020-02-24] MEDS: ALBUTEROL SULF 2.5 MG/0.5ML(0.5%) NEB SOLN NEB PRN ×2 (18:24→22:30)
[2020-02-24] MEDS: MONTELUKAST SODIUM 10 MG TAB PO SCH (23:01)
[2020-02-25 05:00] VITALS: BP 104/58
[2020-02-25] MEDS: MEROPENEM 1GM IVPB 100 ML IV SCH ×3 (05:17→23:20)
[2020-02-25] MEDS: SODIUM CHLOR 0.9% PF (SALINE LOCK) 10ML VIAL/SYR IV SCH ×3 (05:17→23:20)
--- NOTE | 2020-02-25 06:47 | NUR ---
END OF SHIFT NOTE WILL ENDORSE PT CARE TO DAY SHIFT RN.PT AOX4, NO S/S OF DISTRESS OR SOB
[2020-02-25 09:00] VITALS: BP 127/66
--- NOTE | 2020-02-25 11:30 | NUR ---
Urine sample collected and sent to lab.
[2020-02-25] MEDS: POLYETHYLENE GLYCOL 17 GM PWDR PO SCH (11:31)
[2020-02-25] MEDS: FLUCONAZOLE 100 MG TAB PO SCH (11:31)
[2020-02-25] MEDS: PANTOPRAZOLE 40 MG TAB PO SCH ×2 (11:31→23:20)
[2020-02-25] MEDS: ENOXAPARIN SOD 80 MG/0.8ML SYRINGE SC SCH ×2 (11:31→23:21)
[2020-02-25] MEDS: VANCOMYCIN 1GM/250ML 250 ML IV SCH (11:32)
[2020-02-25 11:54] LABS: Urine Bacteria NONE SEEN /hpf (None Seen); Urine Blood Negative /uL (Negative); Urine Specific Gravity 1.008 (1.001-1.035); Urine WBC 5 /hpf (0 - 5)
[2020-02-25 12:49] VITALS: BP 112/74
--- NOTE | 2020-02-25 14:10 | NUR ---
Medication not available 1400 scheduled Meropenem antibiotic not available in medication Pyxis at this time. Pharmacy notified, awaiting for medication to be delivered. Check EMAR for additional medication information.
[2020-02-25 16:50] VITALS: BP 119/79
[2020-02-25] MEDS: IPRATROPIUM BROM 0.5 MG/2.5ML INH SOL NEB PRN (18:09)
[2020-02-25] MEDS: ALBUTEROL SULF 2.5 MG/0.5ML(0.5%) NEB SOLN NEB PRN (18:09)
--- NOTE | 2020-02-25 18:09 | NUR ---
AT BEDSIDE FOR REQUESTED BREATHING TX.
--- NOTE | 2020-02-25 19:00 | NUR ---
Opening Shift Note Assumed care of patient, awake and alert x4. Hard of hearing, Respirations are even and unlabored. No S/S of distress/SOB or pain. Bed is low, locked with 2x side rails up. Call light is within reach. Instructed on POC and to call for assist PRN, will continue to monitor for changes Q1hr and PRN.
[2020-02-25 22:00] VITALS: BP 111/57
--- NOTE | 2020-02-25 22:00 | NUR ---
Patient denies any needs right now. No pain and no SOB seen. will continue to educate and monitor patient.
[2020-02-25] MEDS: MONTELUKAST SODIUM 10 MG TAB PO SCH (23:21)
--- NOTE | 2020-02-26 02:53 | NUR ---
Patient asleep. no sob and acute respiratory distress seen.
[2020-02-26 05:00] VITALS: BP 113/62
[2020-02-26] MEDS: VANCOMYCIN 1GM/250ML 250 ML IV SCH (05:02)
[2020-02-26 05:34] LABS: Basophils # (auto) 0 10 ^3/uL (0-0.2); Basophils % (auto) 1.1 % (0.0-2.0); Eosinophils # (auto) 0.5 10 ^3/uL (0-0.8); Eosinophils % (auto) 10.8 % (0.0-7.0); Hematocrit 31.5 % (36.0-46.0); Hemoglobin 10.5 g/dL (12.2-16.2); Lymphocytes # (auto) 0.9 10 ^3/uL (0.4-5.4); Lymphocytes % (auto) 22.2 % (10.0-50.0); Mean Corpuscular Hemoglobin 31.6 pg (28.0-32.0); Mean Corpuscular Hgb Conc. 33.4 g/dL (32.0-36.0); Mean Corpuscular Volume 94.6 fL (80.0-100.0); Monocytes # (auto) 0.6 10 ^3/uL (0-1.3); Monocytes % (auto) 14.7 % (0.0-12.0); Neutrophils # (auto) 2.2 10 ^3/uL (1.6-8.6); Neutrophils % (auto) 51.2 % (37.0-80.0); Platelet Count (auto) 224 10^3/uL (140-450); Red Blood Cells 3.33 10^6/uL (4.0-5.20); Red Cell Distribution Width 14.2 % (11.8-14.3); White Blood Cell 4.3 10^3/uL (4.4-10.8)
[2020-02-26 05:51] LABS: BUN/Creatinine Ratio 15.5; Calcium 8.6 mg/dL (8.5-10.1); Potassium 3.8 mmol/L (3.5-5.1)
[2020-02-26] MEDS: MEROPENEM 1GM IVPB 100 ML IV SCH ×3 (06:18→22:00)
[2020-02-26] MEDS: SODIUM CHLOR 0.9% PF (SALINE LOCK) 10ML VIAL/SYR IV SCH ×3 (06:19→22:01)
--- NOTE | 2020-02-26 06:49 | NUR ---
Closing shift report Patient no SOB, Denies any pain, bed in low locked position, siderails up x2, call light within reach.
--- NOTE | 2020-02-26 07:00 | NUR ---
Patient use bedside commode. gait unsteady. moderate assist.
--- NOTE | 2020-02-26 07:18 | NUR ---
IV removal IV DC'd with clean sterile technique, catheter fully intact. Pressure dressing applied to site. Patient tolerated well. NOTE:
--- NOTE | 2020-02-26 07:18 | NUR ---
IV insertion IV access obtained, via clean sterile technique by inserting 22 gauge catheter at Left forearm after 1 attempt. IV secured properly. No trauma to site. Patient tolerated well. NOTE:
--- NOTE | 2020-02-26 07:30 | NUR ---
RECEIVED REPORT FROM NIGHT NURSE. PATIENT RESTING IN BED, NO DISTRESS NOTED. WILL CONTINUE TO MONITOR.
[2020-02-26 09:00] VITALS: BP 106/66
[2020-02-26] MEDS: FLUCONAZOLE 100 MG TAB PO SCH (10:16)
[2020-02-26] MEDS: ENOXAPARIN SOD 80 MG/0.8ML SYRINGE SC SCH ×2 (10:16→22:01)
[2020-02-26] MEDS: PANTOPRAZOLE 40 MG TAB PO SCH ×2 (10:16→22:01)
[2020-02-26] MEDS: POLYETHYLENE GLYCOL 17 GM PWDR PO SCH (10:16)
--- NOTE | 2020-02-26 11:15 | NUR ---
DR. DIAS AT BEDSIDE.
--- NOTE | 2020-02-26 11:36 | NUR ---
Called Dr. Cortes requested update on plan of care for patient, was advised MD will speak with Patients daughter and get back to me.
--- NOTE | 2020-02-26 11:45 | NUR ---
Nutrition Followup Notes Wt: 62.4 kg Pt was with MD at bedside. per records pt with DVT. pt is currently on full liq diet adequate Po of 75% x 4 per RN doc Est Energy needs: 1414-2746 kcals (20-23 kcal/kgBW), Est Protein needs: 61-67 gms/day (1.0-1.1 gm/kgBW). Will continue to monitor and reassess prn. LABS: ALB 2.3 L GI: Pt had 1 BM today per RN doc. BS: 17 mod risk. Refer to wound assessment report for full details. PES: Inadequate oral intake aeb 25% PO intake r/t pt is with a poor appetite Altered nutrition related lab values r/t current medical condition aeb hyperglycemia, hypoalbuminemia Comments: Will continue to monitor PO status, skin status, pertinent labs and weight trends. Will f/u in 3-4 days Rec: 1) If albumin continues trending down consider Prostat 1 pkt BID. 2) advance diet as medically feasible. 3) Continue current plan of care
[2020-02-26] MEDS ORDERED: SODIUM FERR GLUC 62.5MG/5ML 125 MG in SODIUM CHL 0.9% 100 ML IV ONE (13:00)
[2020-02-26 13:06] VITALS: BP 113/80
[2020-02-26 14:11] LABS: Folate (Folic Acid) > 24.00 ng/mL (5.38-24)
[2020-02-26 16:34] VITALS: BP 133/74
--- NOTE | 2020-02-26 19:00 | NUR ---
PATIENT CARE ENDORSED TO NIGHT NURSE. PATIENT RESTING IN BED, NO DISTRESS NOTED.
--- NOTE | 2020-02-26 19:00 | NUR ---
Opening Shift Note Assumed care of patient, awake and alert x4. No S/S of distress/SOB or pain. Bed in locked position, call light within reach, siderails upx2. Safety fall precaution education given. Inform plan of care for tonight. Instructed on POC and to call for assist PRN, will continue to monitor for changes Q1hr and PRN. Patient verbalized and agreed understanding.
[2020-02-26 22:00] VITALS: BP 121/68
[2020-02-26] MEDS: MONTELUKAST SODIUM 10 MG TAB PO SCH (22:01)
--- NOTE | 2020-02-26 23:10 | NUR ---
Daughter Melanie called for updates.
[2020-02-27 05:00] VITALS: BP 123/62
[2020-02-27] MEDS: MEROPENEM 1GM IVPB 100 ML IV SCH ×3 (05:58→21:26)
[2020-02-27] MEDS: SODIUM CHLOR 0.9% PF (SALINE LOCK) 10ML VIAL/SYR IV SCH ×3 (05:59→21:24)
[2020-02-27 06:26] LABS: Hematocrit 32.1 % (36.0-46.0)
--- NOTE | 2020-02-27 06:51 | NUR ---
CLOSING SHIFT REPORT PATIENT NO COMPLAINS, NO SOB AND NO ACUTE DISTRESS. BED IN LOW LOCKED POSITION, SIDERAILS UPX2, CALL LIGHT WITHIN REACH .SAFETY FALL PRECAUTION OBSERVED.
--- NOTE | 2020-02-27 07:29 | NUR ---
Respiratory note: PT IS RESTING COMFORTABLY. NO RESPIRATORY DISTRESS NOTED. SPO2 97% ON 2L NC, HR 87, RR 17 BS CLEAR BILATERALLY. PRN MEDNEB TX NOT INDICATED AT THIS TIME. PT INFORMED TO PUSH CALL BUTTON IF INCREASED WOB, SOB, OR WHEEZING OCCURS. WILL CONTINUE TO MONITOR PT.
--- NOTE | 2020-02-27 07:30 | NUR ---
RECEIVED REPORT FROM NIGHT NURSE. PATIENT RESTING IN BED, NO DISTRESS NOTED. WILL CONTINUE TO MONITOR.
--- NOTE | 2020-02-27 09:00 | NUR ---
PATIENT UP TO CHAIR WITH ASSISTANCE.
--- NOTE | 2020-02-27 09:15 | NUR ---
DR. DIAS AT BEDSIDE.
[2020-02-27 09:16] VITALS: BP 120/66
[2020-02-27] MEDS: ENOXAPARIN SOD 80 MG/0.8ML SYRINGE SC SCH ×2 (10:58→21:24)
[2020-02-27] MEDS: PANTOPRAZOLE 40 MG TAB PO SCH ×2 (10:59→21:24)
[2020-02-27] MEDS: POLYETHYLENE GLYCOL 17 GM PWDR PO SCH (10:59)
[2020-02-27] MEDS: FLUCONAZOLE 100 MG TAB PO SCH (10:59)
[2020-02-27 12:20] VITALS: BP 114/63
[2020-02-27] MEDS: SODIUM FERR GLUC 62.5MG/5ML 125 MG in SODIUM CHL 0.9% 100 ML IV SCH (13:58)
[2020-02-27 16:07] VITALS: BP 110/78
--- NOTE | 2020-02-27 19:35 | NUR ---
Opening Shift Note Assumed care of patient, awake and alert. No S/S of distress/SOB or pain. Fall and safety precautions in place. Call light within reach and able to use. Instructed on POC and to call for assist PRN, patient verbalized understanding and in agreement. Will continue to monitor for changes Q1hr and PRN.
[2020-02-27] MEDS: MONTELUKAST SODIUM 10 MG TAB PO SCH (21:24)
--- NOTE | 2020-02-27 21:30 | NUR ---
STOOL SENT TO LAB PATIENT ASSISTED TO COMMODE AND HAS BOWEL MOVEMENT AT THIS TIME. BOWEL MOVEMENT IS SMALL/MEDIUM SIZED, BROWN IN COLOR, HARD/FORMED IN CONSISTENCY. STOOL SAMPLE OBTAINED AT THIS TIME AND SENT TO LAB. LAB CONFIRMED SAMPLE RECEIVED. WILL CONTINUE TO MONITOR.
--- NOTE | 2020-02-27 22:00 | NUR ---
BED BATH PATIENT REQUESTS BED BATH. THIS RN AND TOTER PERFORM BED BATH AT THIS TIME, MODERATE ASSISTANCE. FULL LINEN CHANGED. PATIENT TOLERATED WELL. PATIENT REPOSITIONED FOR COMFORT. CALL LIGHT WITHIN REACH. WILL CONTINUE TO MONITOR.
[2020-02-27 22:10] VITALS: BP 135/80
[2020-02-28 05:27] VITALS: BP 129/67
[2020-02-28] MEDS: MEROPENEM 1GM IVPB 100 ML IV SCH ×3 (05:30→21:16)
[2020-02-28] MEDS: SODIUM CHLOR 0.9% PF (SALINE LOCK) 10ML VIAL/SYR IV SCH ×3 (05:30→21:16)
--- NOTE | 2020-02-28 07:45 | NUR ---
Opening Note Received report from air force pilot RN. Patient is awake, alert and oriented x4. No signs or symptoms of distress noted at this time. Patient is on 2L NC, respirations even and unlabored. Patient denies shortness of breath or pain at this time. Reviewed plan of care with patient, patient verbalized understanding. Bed in low and locked position, call light within reach. Will continue to monitor Q1 hour and PRN.
--- NOTE | 2020-02-28 08:55 | NUR ---
Dr. Cortes at bedside MD at bedside discussing plan of care with patient and this RN. MD instructed patient to ambulate with physical therapy 2-3 times today. Patient verbalized understanding. Will continue to monitor Q1 hour and PRN.
[2020-02-28 09:00] VITALS: BP 129/73
[2020-02-28] MEDS: PANTOPRAZOLE 40 MG TAB PO SCH ×2 (09:43→21:16)
[2020-02-28] MEDS: POLYETHYLENE GLYCOL 17 GM PWDR PO SCH (09:44)
[2020-02-28] MEDS: FLUCONAZOLE 100 MG TAB PO SCH (09:44)
[2020-02-28] MEDS: ENOXAPARIN SOD 80 MG/0.8ML SYRINGE SC SCH ×2 (09:45→21:16)
--- NOTE | 2020-02-28 10:41 | NUR ---
Physical Therapy at bedside therapist stated that patient ambulated to hallway and back. Patient sitting up in chair. Call light within reach, instructed to call when ready to return to bed. Patient verbalized understanding. Will continue to monitor Q1 hour and PRN.
[2020-02-28] MEDS: SODIUM FERR GLUC 62.5MG/5ML 125 MG in SODIUM CHL 0.9% 100 ML IV SCH (12:35)
[2020-02-28 13:00] VITALS: BP 119/67
--- NOTE | 2020-02-28 15:30 | NUR ---
Breathing Treatment Patient requesting a breathing treatment. Patient is on 2L NC, respirations even and unlabored. No signs or symptoms of distress. Will page RT, will continue to monitor Q1 hour and PRN.
[2020-02-28 16:46] VITALS: BP 120/63
--- NOTE | 2020-02-28 17:05 | NUR ---
Incontinence or urine Patient had an episode of incontinence. Patient states she woke up and had accidentally went. Patient cleaned and linen change completed. Will continue to monitor Q1 hour and PRN.
[2020-02-28] MEDS: ALBUTEROL SULF 2.5 MG/0.5ML(0.5%) NEB SOLN NEB PRN ×2 (17:57→22:29)
[2020-02-28] MEDS: IPRATROPIUM BROM 0.5 MG/2.5ML INH SOL NEB PRN ×2 (17:57→22:29)
--- NOTE | 2020-02-28 19:05 | NUR ---
Closing Note Report given to setter juice packaging machines RN. No signs or symptoms of distress noted at this time.
--- NOTE | 2020-02-28 19:40 | NUR ---
Opening Shift Note Assumed care of patient, AOx4. No S/S of distress/SOB or pain. Fall and safety precautions in place. Call light within reach and able to use. Instructed on POC and to call for assist PRN, patient verbalized understanding and in agreement. Will continue to monitor for changes Q1hr and PRN.
[2020-02-28] MEDS: MONTELUKAST SODIUM 10 MG TAB PO SCH (21:16)
[2020-02-28 22:00] VITALS: BP 126/69
[2020-02-29 05:00] VITALS: BP 123/64
[2020-02-29] MEDS: MEROPENEM 1GM IVPB 100 ML IV SCH ×3 (05:31→22:34)
[2020-02-29] MEDS: SODIUM CHLOR 0.9% PF (SALINE LOCK) 10ML VIAL/SYR IV SCH ×3 (05:31→22:34)
--- NOTE | 2020-02-29 07:30 | NUR ---
Opening Note Received report from date night caregiver RN. Patient is resting in bed, with no signs or symptoms of distress noted at this time. Patient is on 2L NC, respirations even and unlabored. Bed in low and locked position, call light within reach. Will continue to monitor Q1 hour and PRN.
[2020-02-29 09:00] VITALS: BP 129/73
--- NOTE | 2020-02-29 09:50 | NUR ---
Dr. Cortes at bedside MD at bedside discussing plan of care with patient and this RN. Patient instructed to increase ambulation with physical therapy, and possible discharge tomorrow. Patient verbalized understanding. Will continue to monitor Q1 hour and PRN.
--- NOTE | 2020-02-29 11:15 | NUR ---
Updated patients daughter on status and plan of care
--- NOTE | 2020-02-29 11:30 | NUR ---
Nutrition Followup Notes Wt: 55.2 kg Pt was with curtain drawn. Pt is with a full liquid diet with adequate PO of 75% x 4 per RN doc Est Energy needs: 4437-3958 kcals (20-23 kcal/kgBW), Est Protein needs: 61-67 gms/day (1.0-1.1 gm/kgBW). Will continue to monitor and reassess prn. LABS: ALB 2.3 L GI: Pt had 1 BM today per RN doc. BS: 16 mod risk. Refer to wound assessment report for full details. PES: Inadequate oral intake aeb 25% PO intake r/t pt is with a poor appetite Altered nutrition related lab values r/t current medical condition aeb hyperglycemia, hypoalbuminemia Comments: Will continue to monitor PO status, skin status, pertinent labs and weight trends. Will f/u in 3-4 days Rec: 1) If albumin continues trending down consider Prostat 1 pkt BID. 2) advance diet as medically feasible. 3) Continue current plan of care
[2020-02-29] MEDS: PANTOPRAZOLE 40 MG TAB PO SCH ×2 (11:42→22:34)
[2020-02-29] MEDS: POLYETHYLENE GLYCOL 17 GM PWDR PO SCH (11:42)
[2020-02-29] MEDS: FLUCONAZOLE 100 MG TAB PO SCH (11:42)
[2020-02-29] MEDS: ALBUTEROL SULF 2.5 MG/0.5ML(0.5%) NEB SOLN NEB PRN ×3 (11:42→22:27)
[2020-02-29] MEDS: IPRATROPIUM BROM 0.5 MG/2.5ML INH SOL NEB PRN ×3 (11:42→22:27)
[2020-02-29] MEDS: ENOXAPARIN SOD 80 MG/0.8ML SYRINGE SC SCH ×2 (11:43→22:34)
[2020-02-29 13:00] VITALS: BP 126/82
[2020-02-29] MEDS: SODIUM FERR GLUC 62.5MG/5ML 125 MG in SODIUM CHL 0.9% 100 ML IV SCH (13:04)
--- NOTE | 2020-02-29 14:00 | NUR ---
Pt had x3 episodes of urine incontinence. She requested to sit in a chair with requested briefs and sanitary pad . Call light in reach .
--- NOTE | 2020-02-29 14:19 | NUR ---
ATTEMPTED TO DO PT WITH PATIENT TWICE ALREADY TODAY. DURING BOTH ATTEMPTS PATIENT HAS REQUESTED THAT PT COME BACK LATER. WILL TRY ONE MORE TIME BEFORE END OF THE DAY. Addendum: 02/29/20 at 1422 by KRISTI ROBLERO PTT Amended: Links added.
--- NOTE | 2020-02-29 14:27 | NUR ---
Patient requesting chest CT Patient states she "needs to have a chest CT" before she goes home. This RN informed Dr. Cortes of patients requests, states there is no indication for a repeat at this time. Patient updated on the plan, and verbalized understanding.
--- NOTE | 2020-02-29 14:28 | NUR ---
Attempted to picked edge sewing machine operator lunch tray but pt has not yet started . I offered to rewarm the lunch but pt stated "I'll let you know when i'm ready" . Call light is in reach.
[2020-02-29 16:05] VITALS: BP 126/82
[2020-02-29 16:53] VITALS: BP 132/72
--- NOTE | 2020-02-29 18:15 | NUR ---
Daughter at bedside Patients daughter at bedside, patient sitting up in chair eating dinner. Call light within reach, will continue to monitor Q1 hour and PRN.
--- NOTE | 2020-02-29 18:59 | NUR ---
Closing Note Report given to patient flow coordinator RN. No signs or symptoms of distress noted at this time.
--- NOTE | 2020-02-29 19:30 | NUR ---
Opening Shift Note Assumed care of patient, awake and alert. No S/S of distress/SOB or pain. Updated on POC and to call for assist PRN, patient verbalized understanding. Bed in lowest position, call light within reach, will continue to monitor for changes Q1hr and PRN.
[2020-02-29 22:00] VITALS: BP 123/74
[2020-02-29] MEDS: MONTELUKAST SODIUM 10 MG TAB PO SCH (22:34)
[2020-03-01 05:36] VITALS: BP 120/67
[2020-03-01] MEDS: SODIUM CHLOR 0.9% PF (SALINE LOCK) 10ML VIAL/SYR IV SCH ×2 (06:13→14:01)
[2020-03-01] MEDS: MEROPENEM 1GM IVPB 100 ML IV SCH ×2 (06:13→14:01)
--- NOTE | 2020-03-01 07:16 | NUR ---
Respiratory note: PT ASSESSED AT THIS TIME. RESPIRATORY RATE 16, SPO2 97% ON 1L NC, HEART RATE 94 BPM, BREATH SOUNDS ARE CLEAR T/O. NO RESPIRATORY DISTRESS NOTED AT THIS TIME. PT AWAKE ALERT AND COMMUNICATING IN COMPLETE SENTENCES. PT INSTRUCTED TO HAVE RT CALLED FOR ANY RESPIRATORY DISTRESS.
[2020-03-01 09:00] VITALS: BP 132/79
--- NOTE | 2020-03-01 09:37 | NUR ---
physician rounding Dr. Cortes at bedside. MD updated patient on plan of care, MD spoke via telephone with patients daughter Melanie as well, both verbalized understanding. Per MD patient is to work with physical therapy and be D/C today in the afternoon. Physical therapy present at bedside. Will follow through, will continue care.
[2020-03-01] MEDS: POLYETHYLENE GLYCOL 17 GM PWDR PO SCH (10:30)
[2020-03-01] MEDS: ENOXAPARIN SOD 80 MG/0.8ML SYRINGE SC SCH (10:30)
[2020-03-01] MEDS: PANTOPRAZOLE 40 MG TAB PO SCH (10:30)
[2020-03-01] MEDS: FLUCONAZOLE 100 MG TAB PO SCH (10:30)
--- NOTE | 2020-03-01 10:30 | NUR ---
Pneumonia vaccine. informed patient that pneumonia vaccine is pending to be given on D/C. Patient stated "I already got it with my PCP, i do not need it today."
--- NOTE | 2020-03-01 11:35 | NUR ---
opening note Assumed care of patient, from ADRI RN. Patient is AOx4, no s/s of distress noted. Bed is in lowest locked position, side rails up x2, and call light with in reach. Updated patient on plan of care and patient verbalized understanding. Will continue to monitor q1hr and PRN. Addendum: 03/01/20 at 1453 by SINDY MERINO RN CORRECT TIME 0740
[2020-03-01] MEDS: SODIUM FERR GLUC 62.5MG/5ML 125 MG in SODIUM CHL 0.9% 100 ML IV SCH (12:05)
[2020-03-01] MEDS ORDERED: PANT40T PO (12:47)
[2020-03-01] MEDS ORDERED: APIX5TAB PO (12:47)
[2020-03-01] MEDS ORDERED: FER325T PO (12:47)
[2020-03-01 13:00] VITALS: BP 141/78
--- NOTE | 2020-03-01 14:30 | NUR ---
Spoke with family Spoke with patients daughter Melanie regarding home health. Per Melanie she has been in contact with patients home health company [employer] to resume home health upon D/C.
[2020-03-01 14:55] VITALS: BP 141/78
--- NOTE | 2020-03-01 19:15 | NUR ---
END OF SHIFT NOTE ENDORSED CARE TO NOC RN. NO S/S OF DISTRESS NOTED. ENDORSED D/C TO NOC RN.
[2020-03-01] MEDS ORDERED: ENOXAPARIN SOD 60 MG/0.6 ML SYRINGE SC SCH (22:00)
== END 2020-03-01 19:20 | disposition home health service (06) | DRG 299 ==
LOC: ER 18:50 → OVERFLOW 18:51 → CENTRAL 23:14 → EAST 02-20 16:52 → CENTRAL 02-21 10:58 → TELE-CENTR 02-21 18:51
PROVIDERS: ADMIT Nurse Practitioner Family; ATTEND Internal Medicine
DX: I82.411 Acute embolism and thrombosis of right femoral vein (principal); I26.99 Other pulmonary embolism without acute cor pulmonale; J98.11 Atelectasis; J90 Pleural effusion, not elsewhere classified; D62 Acute posthemorrhagic anemia; N39.0 Urinary tract infection, site not specified; I82.431 Acute embolism and thrombosis of right popliteal vein; I10 Essential (primary) hypertension; D64.9 Anemia, unspecified; J45.909 Unspecified asthma, uncomplicated; F03.90 Unspecified dementia, unspecified severity, without behavioral disturbance, psychotic disturbance, mood disturbance, and anxiety; Z20.828 Contact with and (suspected) exposure to other viral communicable diseases; E78.5 Hyperlipidemia, unspecified; Z88.2 Allergy status to sulfonamides; Z28.21 Immunization not carried out because of patient refusal
CPT/HCPCS: 36415; 36600; 71045; 71260; 74177; 80048; 80053; 80202; 81001; 82270; 82607; 82728; 82746; 82805; 83540; 83550; 83615; 83735; 85014; 85018; 85025; 85045; 85379; 85610; 85652; 85730; 86141; 87040; 87081; 87086; 87088; 87426; 87804; 93306; 93971; 94640; 97110; 97116; 97530; G0378; J2185; J3490; J7042

== ENCOUNTER → 2020-03-16 | Outpatient (CLI) | payer MEDICARE, BC ==
[~2020-03-16] MED LIST changes: -AMLO5TAB15 PO; +APIX5TAB PO; -ATEN1TAB38 PO; +FER325T PO; -LEVO-28 PO; -MET500T PO; -MONT10TA34 PO; -OLME40TA26 PO; +PANT40T PO; -POLY33504 PO
[2020-03-16 11:42] LABS: Basophils # (auto) 0.1 10 ^3/uL (0-0.2); Basophils % (auto) 1.2 % (0.0-2.0); Eosinophils # (auto) 0.2 10 ^3/uL (0-0.8); Eosinophils % (auto) 3.8 % (0.0-7.0); Lymphocytes # (auto) 0.9 10 ^3/uL (0.4-5.4); Lymphocytes % (auto) 19.9 % (10.0-50.0); Mean Corpuscular Hemoglobin 31.9 pg (28.0-32.0); Mean Corpuscular Hgb Conc. 33.3 g/dL (32.0-36.0); Mean Corpuscular Volume 95.7 fL (80.0-100.0); Monocytes # (auto) 0.5 10 ^3/uL (0-1.3); Monocytes % (auto) 11.1 % (0.0-12.0); Neutrophils # (auto) 2.8 10 ^3/uL (1.6-8.6); Nucleated Red Blood Cells % 0.2 %; Platelet Count (auto) 217 10^3/uL (140-450); Red Blood Cells 4.07 10^6/uL (4.0-5.20); Red Cell Distribution Width 15.9 % (11.8-14.3); White Blood Cell 4.3 10^3/uL (4.4-10.8)
== END | disposition home or self-care (01) ==
LOC: LAB 11:22
PROVIDERS: ATTEND Internal Medicine
DX: N39.0 Urinary tract infection, site not specified (principal); D64.9 Anemia, unspecified
CPT/HCPCS: 36415; 85025; 87086

== ENCOUNTER → 2020-09-07 | Outpatient (CLI) | payer MEDICARE, BC | END | disposition home or self-care (01) | LOC: LAB 13:10 | PROVIDERS: ATTEND Internal Medicine Pulmonary Disease | DX: I82.431 Acute embolism and thrombosis of right popliteal vein (principal); I26.99 Other pulmonary embolism without acute cor pulmonale; R22.2 Localized swelling, mass and lump, trunk | CPT/HCPCS: 36415; 82565; 84520 ==

== ENCOUNTER → 2020-09-21 | Outpatient (CLI) | payer MEDICARE, BC ==
[2020-09-21 13:50] LABS: Basophils # (auto) 0 10 ^3/uL (0-0.2); Basophils % (auto) 0.9 % (0.0-2.0); Eosinophils # (auto) 0.2 10 ^3/uL (0-0.8); Hematocrit 41.7 % (36.0-46.0); Hemoglobin 14.7 g/dL (12.2-16.2); Lymphocytes # (auto) 1.1 10 ^3/uL (0.4-5.4); Lymphocytes % (auto) 23.8 % (10.0-50.0); Mean Corpuscular Hemoglobin 32.9 pg (28.0-32.0); Mean Corpuscular Hgb Conc. 35.3 g/dL (32.0-36.0); Mean Corpuscular Volume 93.1 fL (80.0-100.0); Monocytes # (auto) 0.5 10 ^3/uL (0-1.3); Monocytes % (auto) 10.1 % (0.0-12.0); Neutrophils # (auto) 2.7 10 ^3/uL (1.6-8.6); Neutrophils % (auto) 61.2 % (37.0-80.0); Platelet Count (auto) 184 10^3/uL (140-450); Red Blood Cells 4.47 10^6/uL (4.0-5.20); Red Cell Distribution Width 13.8 % (11.8-14.3); White Blood Cell 4.5 10^3/uL (4.4-10.8)
[2020-09-21 14:09] LABS: Albumin 3.7 g/dL (3.4-5.0); Potassium 3.8 mmol/L (3.5-5.1)
[2020-09-21 14:15] LABS: BUN/Creatinine Ratio 26.3; Bilirubin, Total 0.6 mg/dL (0.2-1.0); Total Protein 7.6 g/dL (6.4-8.2)
== END | disposition home or self-care (01) ==
LOC: LAB 13:16
PROVIDERS: ATTEND Internal Medicine
DX: I50.9 Heart failure, unspecified (principal); J45.909 Unspecified asthma, uncomplicated; R60.0 Localized edema; R73.03 Prediabetes; K57.80 Diverticulitis of intestine, part unspecified, with perforation and abscess without bleeding; N39.0 Urinary tract infection, site not specified; I82.3 Embolism and thrombosis of renal vein
CPT/HCPCS: 36415; 80053; 80061; 82043; 83880; 85025; 87086

== ENCOUNTER 2020-11-01 10:34 | Emergency (ER) | payer MEDICARE, BC ==
[~2020-11-01] VITALS: Ht 147.3 cm; Wt 62.6 kg
[2020-11-01] MEDS ORDERED: SODIUM CHLORIDE 0.9% 1,000 ML IV ONE ×2 (11:15→13:00)
[2020-11-01 11:24] LABS: Basophils # (auto) 0 10 ^3/uL (0-0.2); Basophils % (auto) 0.4 % (0.0-2.0); Eosinophils # (auto) 0.1 10 ^3/uL (0-0.8); Eosinophils % (auto) 0.7 % (0.0-7.0); Hematocrit 40.8 % (36.0-46.0); Hemoglobin 14.2 g/dL (12.2-16.2); Lymphocytes # (auto) 0.7 10 ^3/uL (0.4-5.4); Lymphocytes % (auto) 5.4 % (10.0-50.0); Mean Corpuscular Hemoglobin 32.6 pg (28.0-32.0); Mean Corpuscular Hgb Conc. 34.9 g/dL (32.0-36.0); Mean Corpuscular Volume 93.5 fL (80.0-100.0); Monocytes # (auto) 1.1 10 ^3/uL (0-1.3); Monocytes % (auto) 8.7 % (0.0-12.0); Neutrophils # (auto) 11.2 10 ^3/uL (1.6-8.6); Neutrophils % (auto) 84.8 % (37.0-80.0); Red Blood Cells 4.36 10^6/uL (4.0-5.20); Red Cell Distribution Width 13.6 % (11.8-14.3); White Blood Cell 13.2 10^3/uL (4.4-10.8)
[2020-11-01 11:40] LABS: Albumin 3.2 g/dL (3.4-5.0); Calcium 8.8 mg/dL (8.5-10.1); INR 1.03 (0.9-1.15); Partial Thromboplastin Time 34.5 sec (23.0-31.2); Potassium 3.3 mmol/L (3.5-5.1)
[2020-11-01 11:44] LABS: BUN/Creatinine Ratio 15.3; Bilirubin, Total 1.1 mg/dL (0.2-1.0); Total Protein 7.4 g/dL (6.4-8.2)
[2020-11-01 13:58] LABS: Urine Bacteria NONE SEEN /hpf (None Seen); Urine Blood Negative /uL (Negative); Urine Hyaline Cast FEW /lpf (0 - 2); Urine Specific Gravity 1.008 (1.001-1.035); Urine WBC 106 /hpf (0 - 5)
[2020-11-01 14:22] VITALS: BP 130/60
== END 2020-11-01 15:24 | disposition home or self-care (01) ==
LOC: ER 10:34
DX: R10.30 Lower abdominal pain, unspecified (principal); I10 Essential (primary) hypertension; E78.5 Hyperlipidemia, unspecified; J45.909 Unspecified asthma, uncomplicated; Z88.2 Allergy status to sulfonamides
CPT/HCPCS: 36415; 71045; 74176; 80053; 81001; 84484; 85025; 85049; 85610; 85730; 93971; 96360; 96361; 99285; J7030

== ENCOUNTER → 2021-10-10 | Outpatient (CLI) | payer MEDICARE, BC ==
[2021-10-10 13:33] LABS: Basophils # (auto) 0 10 ^3/uL (0-0.2); Basophils % (auto) 0.7 % (0.0-2.0); Eosinophils # (auto) 0.2 10 ^3/uL (0-0.8); Eosinophils % (auto) 3.5 % (0.0-7.0); Hematocrit 43.9 % (36.0-46.0); Hemoglobin 14.8 g/dL (12.2-16.2); Lymphocytes # (auto) 1.2 10 ^3/uL (0.4-5.4); Lymphocytes % (auto) 21.5 % (10.0-50.0); Mean Corpuscular Hemoglobin 31.8 pg (28.0-32.0); Mean Corpuscular Hgb Conc. 33.8 g/dL (32.0-36.0); Monocytes # (auto) 0.5 10 ^3/uL (0-1.3); Monocytes % (auto) 9.4 % (0.0-12.0); Neutrophils # (auto) 3.5 10 ^3/uL (1.6-8.6); Neutrophils % (auto) 64.9 % (37.0-80.0); Nucleated Red Blood Cells % 0.1 %; Red Blood Cells 4.67 10^6/uL (4.0-5.20); Red Cell Distribution Width 14.2 % (11.8-14.3); White Blood Cell 5.4 10^3/uL (4.4-10.8)
[2021-10-10 14:09] LABS: Albumin 3.3 g/dL (3.4-5.0); Calcium 9.2 mg/dL (8.5-10.1); Potassium 3.7 mmol/L (3.5-5.1)
[2021-10-10 14:15] LABS: BUN/Creatinine Ratio 23.1; Bilirubin, Total 0.4 mg/dL (0.2-1.0); Total Protein 7.6 g/dL (6.4-8.2)
[2021-10-10 14:47] LABS: Urine Amorphous Crystal FEW /hpf (None Seen); Urine Bacteria FEW /hpf (None Seen); Urine Blood Negative /uL (Negative); Urine Specific Gravity 1.008 (1.001-1.035); Urine WBC 7 /hpf (0 - 5)
== END | disposition home or self-care (01) ==
LOC: LAB 13:12
PROVIDERS: ATTEND Internal Medicine
DX: E03.9 Hypothyroidism, unspecified (principal); E11.9 Type 2 diabetes mellitus without complications; I10 Essential (primary) hypertension
CPT/HCPCS: 36415; 80053; 80061; 81001; 82043; 83036; 84443; 85025

== ENCOUNTER → 2022-01-17 | Outpatient (CLI) | payer MEDICARE, BC ==
[2022-01-17 13:21] LABS: Calcium 8.9 mg/dL (8.5-10.1); Potassium 4.6 mmol/L (3.5-5.1)
[2022-01-17 13:25] LABS: Albumin 3.4 g/dL (3.4-5.0); BUN/Creatinine Ratio 25.9; Bilirubin, Total 0.5 mg/dL (0.2-1.0)
== END | disposition home or self-care (01) ==
LOC: LAB 11:58
PROVIDERS: ATTEND Internal Medicine
DX: R73.03 Prediabetes (principal)
CPT/HCPCS: 36415; 80053

== ENCOUNTER → 2022-03-06 | Outpatient (CLI) | payer MEDICARE, BC ==
[2022-03-06 15:33] LABS: Basophils # (auto) 0 10 ^3/uL (0-0.2); Basophils % (auto) 0.6 % (0.0-2.0); Eosinophils # (auto) 0.2 10 ^3/uL (0-0.8); Hematocrit 43.3 % (36.0-46.0); Hemoglobin 14.6 g/dL (12.2-16.2); Lymphocytes # (auto) 1.3 10 ^3/uL (0.4-5.4); Lymphocytes % (auto) 23.5 % (10.0-50.0); Mean Corpuscular Hemoglobin 31.6 pg (28.0-32.0); Mean Corpuscular Hgb Conc. 33.7 g/dL (32.0-36.0); Mean Corpuscular Volume 93.5 fL (80.0-100.0); Monocytes # (auto) 0.5 10 ^3/uL (0-1.3); Neutrophils # (auto) 3.4 10 ^3/uL (1.6-8.6); Neutrophils % (auto) 62.9 % (37.0-80.0); Nucleated Red Blood Cells % 0.1 %; Red Blood Cells 4.63 10^6/uL (4.0-5.20); Red Cell Distribution Width 14.3 % (11.8-14.3); White Blood Cell 5.4 10^3/uL (4.4-10.8)
[2022-03-06 15:59] LABS: Albumin 3.4 g/dL (3.4-5.0); BUN/Creatinine Ratio 21.2; Calcium 9.3 mg/dL (8.5-10.1); Potassium 4.2 mmol/L (3.5-5.1)
[2022-03-06 16:02] LABS: Bilirubin, Total 0.3 mg/dL (0.2-1.0); Total Protein 7.4 g/dL (6.4-8.2)
== END | disposition home or self-care (01) ==
LOC: LAB 14:47
PROVIDERS: ATTEND Internal Medicine
DX: R42 Dizziness and giddiness (principal); I10 Essential (primary) hypertension; E11.9 Type 2 diabetes mellitus without complications; E78.5 Hyperlipidemia, unspecified
CPT/HCPCS: 36415; 80053; 84443; 85025

== ENCOUNTER → 2022-03-06 | Outpatient (CLI) | payer MEDICARE, BC | END | disposition home or self-care (01) | LOC: XYW 15:26 | PROVIDERS: ATTEND Internal Medicine | DX: I08.0 Rheumatic disorders of both mitral and aortic valves (principal); R42 Dizziness and giddiness | CPT/HCPCS: 93306 ==

== ENCOUNTER → 2022-03-08 | Outpatient (CLI) | payer MEDICARE, BC | END | disposition home or self-care (01) | LOC: XY 11:57 | PROVIDERS: ATTEND Internal Medicine | DX: R42 Dizziness and giddiness (principal) | CPT/HCPCS: 93886 ==

== ENCOUNTER → 2022-06-12 | Outpatient (CLI) | payer MEDICARE, BC | END | disposition home or self-care (01) | LOC: LAB 14:03 | PROVIDERS: ATTEND Internal Medicine Gastroenterology | DX: K52.9 Noninfective gastroenteritis and colitis, unspecified (principal); Z87.19 Personal history of other diseases of the digestive system | CPT/HCPCS: 87493 ==

== ENCOUNTER → 2022-06-29 | Outpatient (CLI) | payer MEDICARE | END | disposition home or self-care (01) | LOC: LAB 08:30 | PROVIDERS: ATTEND Internal Medicine | DX: R19.7 Diarrhea, unspecified (principal) | CPT/HCPCS: 87045; 87177; 87427; 87493 ==

== ENCOUNTER → 2022-08-30 | Outpatient (CLI) | payer MEDICARE, BC ==
[2022-08-30 11:41] LABS: Basophils # (auto) 0 10 ^3/uL (0-0.2); Basophils % (auto) 0.7 % (0.0-2.0); Eosinophils # (auto) 0.3 10 ^3/uL (0-0.8); Eosinophils % (auto) 3.9 % (0.0-7.0); Hematocrit 45.2 % (36.0-46.0); Hemoglobin 15.3 g/dL (12.2-16.2); Lymphocytes % (auto) 15.5 % (10.0-50.0); Mean Corpuscular Hemoglobin 31.6 pg (28.0-32.0); Mean Corpuscular Hgb Conc. 33.8 g/dL (32.0-36.0); Mean Corpuscular Volume 93.6 fL (80.0-100.0); Monocytes # (auto) 0.7 10 ^3/uL (0-1.3); Monocytes % (auto) 10.6 % (0.0-12.0); Neutrophils # (auto) 4.6 10 ^3/uL (1.6-8.6); Neutrophils % (auto) 69.3 % (37.0-80.0); Nucleated Red Blood Cells % 0.2 %; Red Blood Cells 4.83 10^6/uL (4.0-5.20); Red Cell Distribution Width 14.2 % (11.8-14.3); White Blood Cell 6.7 10^3/uL (4.4-10.8)
[2022-08-30 11:55] LABS: Albumin 3.6 g/dL (3.4-5.0); Calcium 9.4 mg/dL (8.5-10.1)
[2022-08-30 11:59] LABS: Bilirubin, Total 0.4 mg/dL (0.2-1.0); Total Protein 7.7 g/dL (6.4-8.2)
== END | disposition home or self-care (01) ==
LOC: LAB 11:15
PROVIDERS: ATTEND Internal Medicine
DX: R73.03 Prediabetes (principal); E78.5 Hyperlipidemia, unspecified; K52.9 Noninfective gastroenteritis and colitis, unspecified; E03.9 Hypothyroidism, unspecified
CPT/HCPCS: 36415; 80053; 80061; 82043; 83036; 85025

== ENCOUNTER → 2022-09-13 | Day surgery (SDC) | payer MEDICARE, BC ==
[2022-09-12 14:19] LABS: Basophils # (auto) 0 10 ^3/uL (0-0.2); Basophils % (auto) 0.6 % (0.0-2.0); Eosinophils # (auto) 0.2 10 ^3/uL (0-0.8); Eosinophils % (auto) 2.5 % (0.0-7.0); Hematocrit 45.4 % (36.0-46.0); Hemoglobin 15.2 g/dL (12.2-16.2); Lymphocytes # (auto) 1.2 10 ^3/uL (0.4-5.4); Lymphocytes % (auto) 17.6 % (10.0-50.0); Mean Corpuscular Hemoglobin 31.4 pg (28.0-32.0); Mean Corpuscular Hgb Conc. 33.6 g/dL (32.0-36.0); Mean Corpuscular Volume 93.6 fL (80.0-100.0); Monocytes # (auto) 0.5 10 ^3/uL (0-1.3); Monocytes % (auto) 7.4 % (0.0-12.0); Neutrophils % (auto) 71.9 % (37.0-80.0); Nucleated Red Blood Cells % 0.1 %; Red Blood Cells 4.85 10^6/uL (4.0-5.20); Red Cell Distribution Width 13.8 % (11.8-14.3); White Blood Cell 6.9 10^3/uL (4.4-10.8)
[2022-09-12 14:33] LABS: INR 1.07 (0.9-1.15); Partial Thromboplastin Time 36.7 sec (24.6-33.4)
[2022-09-12 14:48] LABS: Albumin 3.7 g/dL (3.4-5.0); Calcium 9.4 mg/dL (8.5-10.1); Potassium 3.5 mmol/L (3.5-5.1)
[2022-09-12 14:53] LABS: BUN/Creatinine Ratio 19.6 (10.0-20.0); Bilirubin, Total 0.6 mg/dL (0.2-1.0); Total Protein 7.9 g/dL (6.4-8.2)
[~2022-09-13] VITALS: Ht 149.9 cm; Wt 64.9 kg
[~2022-09-13] MED LIST changes: +AMLO-496 PO; -APIX5TAB PO; +CALC667C5 PO; +CRANPOW XX; +DIPH25TA54 PO; +LACTCAP35 OR; +LORA-622 PO; +LOSA25TA38 PO; +MAGN400T40 OR; +MONT-8 OR; +MULT-512 PO; -PANT40T PO; +RIVA20TA PO; +ROSU5TAB5 PO; +SERT50TA PO; +SODIUM CHLORIDE LOCK 10 ML ONE
[2022-09-13] MEDS: fentaNYL CITRATE 100 MCG/2 ML VL ONE ×2 (15:37→15:40)
[2022-09-13] MEDS: MIDAZOLAM HCL 5 MG/ML-1ML VIAL ONE ×2 (15:37→15:40)
[2022-09-13] MEDS: diphenhdrAMINE HCL 50 MG/1 ML VL ONE ×2 (15:37→15:39)
[2022-09-13 16:41] VITALS: BP 141/74
== END | disposition home or self-care (01) ==
LOC: GI 13:55
PROVIDERS: ATTEND Internal Medicine Gastroenterology
DX: R19.4 Change in bowel habit (principal); K57.30 Diverticulosis of large intestine without perforation or abscess without bleeding; K63.5 Polyp of colon
CPT/HCPCS: 36415; 44389; 45330; 80053; 85025; 85610; 85730; J1200; J2250; J3010; J7030

== ENCOUNTER → 2023-09-12 | Outpatient (CLI) | payer MEDICARE, BC ==
[~2023-09-12] MED LIST changes: -AMLO-496 PO; +AMLO1TAB23 PO; +LOSA-533 PO; -LOSA25TA38 PO; -MULT-512 PO; -SODIUM CHLORIDE LOCK 10 ML ONE; +[UNRECOGNIZED DRUG - CODE] PO
[2023-09-12 14:02] LABS: Urine Bacteria None Seen /hpf (None Seen)
[2023-09-12 14:08] LABS: Basophils # (auto) 0 10 ^3/uL (0-0.2); Basophils % (auto) 0.4 % (0.0-2.0); Eosinophils # (auto) 0.1 10 ^3/uL (0-0.8); Eosinophils % (auto) 1.5 % (0.0-7.0); Hematocrit 43.1 % (36.0-46.0); Hemoglobin 14.2 g/dL (12.2-16.2); Lymphocytes % (auto) 14.5 % (10.0-50.0); Mean Corpuscular Hemoglobin 31.3 pg (28.0-32.0); Mean Corpuscular Hgb Conc. 32.9 g/dL (32.0-36.0); Mean Corpuscular Volume 95.1 fL (80.0-100.0); Monocytes # (auto) 0.5 10 ^3/uL (0-1.3); Monocytes % (auto) 7.9 % (0.0-12.0); Neutrophils # (auto) 5.1 10 ^3/uL (1.6-8.6); Neutrophils % (auto) 75.7 % (37.0-80.0); Red Blood Cells 4.53 10^6/uL (4.0-5.20); White Blood Cell 6.7 10^3/uL (4.4-10.8)
[2023-09-12 14:40] LABS: Urine Blood Negative /uL (Negative); Urine Clarity Turbid (Clear); Urine Color Colorless (Yellow); Urine Protein, UAD TRACE (Negative); Urine Specific Gravity 1.008 (1.001-1.035); Urine Urobilinogen Normal (Negative); Urine WBC 2 /hpf (0 - 5)
[2023-09-12 14:42] LABS: Alanine Aminotransferase 22 U/L (7-40); Alkaline Phosphatase 85 U/L (46-116); Anion Gap 5 (5-15); Aspartate Aminotransferase 25 U/L (13-40); Blood Urea Nitrogen 16 mg/dL (9-23); Calcium 9.8 mg/dL (8.5-10.1); Carbon Dioxide 30 mmol/L (20-30); Chloride 108 mmol/L (98-107); Glucose 104 mg/dL (74-106); LDL Cholesterol 142 mg/dL (< 100); Potassium 3.9 mmol/L (3.5-5.1); Sodium 143 mmol/L (136-145); Triglycerides 142 mg/dL (< 150)
[2023-09-12 14:43] LABS: Albumin 4.2 g/dL (3.2-4.8); Bilirubin, Total 0.6 mg/dL (0.2-1.0); Cholesterol 236 mg/dL (< 200); HDL Cholesterol 76 mg/dL (40-59)
[2023-09-12 15:02] LABS: Folate (Folic Acid) 45.18 ng/mL (>5.38)
[2023-09-15 08:06] LABS: RPR Non Reactive (Non Reactive)
== END | disposition home or self-care (01) ==
LOC: LAB 09-11 16:07
PROVIDERS: ATTEND Internal Medicine
DX: I10 Essential (primary) hypertension (principal); E03.9 Hypothyroidism, unspecified; E78.5 Hyperlipidemia, unspecified; R73.03 Prediabetes; F03.90 Unspecified dementia, unspecified severity, without behavioral disturbance, psychotic disturbance, mood disturbance, and anxiety; Z79.899 Other long term (current) drug therapy
CPT/HCPCS: 36415; 80053; 80061; 81001; 82306; 82607; 82746; 84443; 85025; 86592